=== PATIENT | female | born 1980 | race Caucasian/White ===

== ENCOUNTER → 2019-07-24 13:00 | Outpatient (BNVA) | payer OTHER, SELFPAY | PROVIDERS: Family Provider Pediatrics; PCP Family Medicine; Visit Provider Obstetrics & Gynecology | DX: N64.59 Other signs and symptoms in breast (principal); N64.4 Mastodynia | CPT/HCPCS: 84402; 84443 ==

== ENCOUNTER 2019-08-03 08:39 | Outpatient (CLI) | payer OTHER, SELFPAY ==
--- NOTE | 2019-08-03 08:45 | US_ITS ---
WS: [id number] ULTRASOUND BILATERAL BREASTs, complete. HISTORY: breast pain, bilateral mammoplasty. History of bilateral maternal breast cancer in her 40s. COMPARISON: 10/01/2015 TECHNIQUE: 2-D and Doppler. Ultrasound is performed of the 4 quadrants of each breast. No masses or distortion or soft tissue thi ckening. No increased vascularity. US/US breast BI complete [id number] IMPRESSION: BI-RADS: 1-Negative FOLLOW-UP: See Report As the patient is symptomatic and with a significant family history of breast c ancer mammogram should be obtained. Complete breast ultrasound is not adequate to evaluate all areas of the breast if symptomatic and positive family history.
== END 2019-08-03 08:40 | disposition home or self-care (01) ==
LOC: RAD 08:43
PROVIDERS: Visit Provider Obstetrics & Gynecology
DX: N64.4 Mastodynia (principal); Z80.3 Family history of malignant neoplasm of breast
CPT/HCPCS: 76641

== ENCOUNTER → 2019-08-21 10:42 | Outpatient (BNVA) | payer OTHER, SELFPAY | PROVIDERS: Visit Provider Obstetrics & Gynecology | DX: Z01.419 Encounter for gynecological examination (general) (routine) without abnormal findings | CPT/HCPCS: 88175 ==

== ENCOUNTER → 2019-12-10 09:34 | Outpatient (BNVA) | payer OTHER, SELFPAY | PROVIDERS: PCP Family Medicine; Visit Provider Family Medicine | DX: Z13.6 Encounter for screening for cardiovascular disorders (principal); J30.2 Other seasonal allergic rhinitis; Z23 Encounter for immunization | CPT/HCPCS: 80053; 80061; 83721; 85025 ==

== ENCOUNTER → 2019-12-11 15:48 | Outpatient (BNVA) | payer OTHER, SELFPAY | PROVIDERS: PCP Family Medicine; Visit Provider Family Medicine | DX: Z13.6 Encounter for screening for cardiovascular disorders (principal); J30.2 Other seasonal allergic rhinitis; Z23 Encounter for immunization; R79.9 Abnormal finding of blood chemistry, unspecified | CPT/HCPCS: 82728; 83550 ==

== ENCOUNTER → 2020-03-03 09:30 | Outpatient (BNVA) | payer OTHER, SELFPAY | PROVIDERS: PCP Family Medicine; Visit Provider Family Medicine | DX: E78.2 Mixed hyperlipidemia (principal) | CPT/HCPCS: 80061 ==

== ENCOUNTER → 2020-04-18 09:32 | Outpatient (BNVA) | payer OTHER, SELFPAY | PROVIDERS: PCP Family Medicine; Visit Provider Family Medicine | DX: M79.10 Myalgia, unspecified site (principal); Z86.19 Personal history of other infectious and parasitic diseases | CPT/HCPCS: 80053; 85025; 85651; 86038; 86140; 86431 ==

== ENCOUNTER 2020-08-16 21:09 | Emergency (ER) | payer OTHER, SELFPAY ==
[2020-08-16 21:25] VITALS: BP 142/82; PULSE 77; RESP 16; O2SAT 95; BMI 28.3
--- NOTE | 2020-08-16 21:40 | ED_ITS ---
HPI - General Adult General: Chief complaint: General Medical Stated complaint: tick bite Time Seen by Provider: 08/16/20 21:29 History of Present Illness: HPI narrative: Patient comes in for a tick bite to the right lower leg that has redness and streaking. Patient appears well. Patient reports some pain and tenderness to the area. Patient is hearing impaired, with hypertriglyceridemia, and depression. Patient reports tick bite for 3 days. Review of Systems General: Reports: 10 or more systems reviewed and unremarkable except in HPI and below Skin/Breast: Reports: erythema PFSH ED PFSH: Medical History (Updated 08/16/20 @ 21:39 by MIN Moore) Hearing impaired History of 2019 novel coronavirus disease (COVID-19) IBS (irritable bowel syndrome) Surgical History Corneal transplant status H/O umbilical hernia repair Surgery performed by Dr. Weiss 1 09/28/2017 for umbilical hernia. Patient does not know if mesh was used. Hx of lumpectomy Lumpectomy performed by Dr. Weiss from the right axilla S/P abdominoplasty in 2010 S/P adenoidectomy Performed as a child S/P appendectomy Laparoscopic appendectomy performed on 08/09/[address] Weiss. S/P bilateral breast reduction Performed in [facility] in 2013 S/P cholecystectomy Laparoscopic cholecystectomy performed on 05/26/[address] [place] [facility] S/P dilation and curettage States that she has had 2 D&C about 2 weeks for heavy bleeding after both her deliveries S/P hemorrhoidectomy First on 08/29/2013 and a second surgery performed for recurrence on 07/13/2017---both procedures performed by Dr. Weiss at [facility]. S/P LEEP Performed in 2012 for an abnormal Pap smear by Dr. Slaughter. She states all Pap smears have been negative since then. Status post corneal transplant 05/2017 Status post surgery Anterior colporrhaphy with cystoscopy: Performed by Dr. Slaughter at the surgery center on 03/27/2012 for cystocele with stress urinary incontinence. Family History Mother Breast cancer Diagnosed in her late 40s Hypertension Hyperlipidemia Grandmother Lung cancer maternal Grandfather Primary cancer of bone marrow maternal Denies family history of Colon cancer Ovarian cancer Diabetes Heart disease Uterine cancer Thyroid condition Stroke Social History Smoking and tobacco status: never smoked Alcohol intake: unknown Additional social history: - Tobacco Use: Denies past or current use Alcohol Use: Drinks socially, once a year on average Drug Use: Denies past or current use Work/Study status: Unemployed, not looking for work. Physical Exam Const: COMMON NORMALS: no acute distress and patient oriented x3 GENERAL APPEARANCE: cooperative HENMT: COMMON NORMALS: normocephalic and Normal external nose present HEAD & SCALP: normal to inspection and normocephalic NOSE: Normal external nose present MOUTH: Normal oral and palatal mucosa present Eye: GENERAL EYE: appearance normal, both eyes and all related structures Neck/C-Spine: COMMON NORMALS: full ROM Chest: COMMONS NORMALS: normal inspection of the chest Resp: COMMON NORMALS: normal respiratory effort EFFORT & INSPECTION: Yes able to speak in complete sentences Cardio: COMMON NORMALS: regular rate and regular rhythm RATE: regular rate RHYTHM: regular rhythm GI: COMMON NORMALS: non-tender Back/Pelvis: COMMON NORMALS: thoracic and lumbar spine normal to inspection Extremity: NARRATIVE EXTREMITY EXAM: Insect bite to the inner right lower leg with a area of redness approximately 2 cm with streaking approximately 4 cm. Neuro: COMMON NORMALS: patient oriented x3 and moves all extremities Psych: COMMON NORMALS: mental status grossly normal and cooperative Skin: COMMON NORMALS: no rashes or lesions noted GENERAL SKIN EXAM: no rashes or lesions noted Course Vital Signs: Vital signs: Vital Signs Pulse Rate 77 08/16/20 21:25 Respiratory Rate 16 08/16/20 21:25 Blood Pressure 142/82 08/16/20 21:25 Pulse Oximetry 95 08/16/20 21:25 MDM - General Adult MDM Narrative: Medical decision making narrative: 40-year-old female comes in today with redness and tenderness to the right lower leg. Patient has a area of redness with a central punctate lesion with some streaking from the area of redness. Differential diagnosis includes cellulitis, infected insect bite, tick borne illness. We will cover for most tickborne illnesses with doxycycline. Encourage plenty of fluids and medications as directed. Patient reported understanding agreed to plan. Discharge Plan Discharge Patient Disposition: Home Clinical Impression: Infected insect bite of right leg Qualifiers: Encounter type: initial encounter Qualified Code(s): S80.861A - Insect bite (nonvenomous), right lower leg, initial encounter Condition: Stable Prescriptions: New doxycycline monohydrate 100 mg capsule 100 mg PO BID 10 Days Qty: 20 RF: 0 No Action multivitamin Capsule 1 cap PO DAILY RF: 0 valacyclovir 500 mg tablet 500 mg PO DAILY RF: 0 MegaRed [place]-3 Krill Oil [phone] mg capsule PO RF: 0 prednisolone acetate 1 % drops,suspension 1 drp ophthalmic (eye) BID RF: 0 ketoconazole 2 % foam 1 applic TOPICAL ONCE RF: 0 levocetirizine 5 mg tablet 5 mg PO DAILY Qty: 90 RF: 1 buspirone 5 mg tablet 5 mg PO TID PRN (Reason: anxiety) Qty: 90 RF: 0 fenofibrate nanocrystallized 145 mg tablet 145 mg PO DAILY Qty: 90 RF: 1 paroxetine HCl [Paxil] 10 mg tablet 10 mg PO DAILY RF: 0 clobetasol 0.05 % solution 1 applic topical DAILY Qty: 25 RF: 3 Discharge Orders: Discharge ED (Routine); Ordered 08/16/20 Ordered By: Kevin Boyer Referrals: Ashleigh Lorenzo DO [Primary Care Provider] - Discharge Diet: Usual diet Discharge Activity: Increase activity as tolerated Patient Instructions: Tick Bite (ED), Opioid Safety Activity Restrictions/Additional Instructions: I have treated you for an infected tick bite. We are covering it with an antibiotic that will cover most tickborne illnesses. Use acetaminophen or ibuprofen for pain. Drink plenty of water with medication. Follow-up with primary care for further instructions. Coding Level of Care Code ED Recoater for Martin Mcclendon
[2020-08-16] MEDS: doxycycline 100 mg Tablet PO (21:56)
[2020-08-16 21:57] VITALS: BP 141/69; PULSE 83; RESP 17; O2SAT 97
== END 2020-08-16 22:05 | disposition home or self-care (01) ==
PROVIDERS: Emergency Provider Nurse Practitioner Family; PCP Family Medicine
DX: S80.861A Insect bite (nonvenomous), right lower leg, initial encounter (principal); X58.XXXA Exposure to other specified factors, initial encounter; E78.1 Pure hyperglyceridemia; H91.93 Unspecified hearing loss, bilateral
CPT/HCPCS: 99282

== ENCOUNTER → 2020-10-21 11:28 | Outpatient (BNVA) | payer OTHER, SELFPAY | PROVIDERS: PCP Family Medicine; Visit Provider Family Medicine | DX: E78.1 Pure hyperglyceridemia (principal) | CPT/HCPCS: 80053; 80061 ==

== ENCOUNTER → 2020-11-04 09:26 | Outpatient (BNVA) | payer OTHER, SELFPAY | PROVIDERS: PCP Family Medicine; Visit Provider Nurse Practitioner Psychiatric/Mental Health | DX: F33.1 Major depressive disorder, recurrent, moderate (principal); F43.12 Post-traumatic stress disorder, chronic; Z79.899 Other long term (current) drug therapy | CPT/HCPCS: 99204 ==

== ENCOUNTER 2020-11-19 11:46 | Outpatient (CLI) | payer OTHER, SELFPAY ==
--- NOTE | 2020-11-19 12:00 | MM_ITS ---
WS: [id number] BILATERAL DIGITAL SCREENING MAMMOGRAPHY WITH CAD CLINICAL INFORMATION: Z80.3 - Family history of malignant neoplasm of breast HISTORY: Screening mammogram. No current complaints. COMPARISON: and 2012 TECHNIQUE: Bilateral CC and MLO views. FINDINGS: History of breast reduction Scattered fibroglandular densities bilaterally. 11 mm asymmetric density inner right breast best seen on the cc view more prominent compared to previous. Recommend spot compression views and ultrasound. Left breast is unremarkable. A few tiny punctate calcifications MM/[place] [id number] IMPRESSION: BI-RADS: 0-Incomplete: Need additional imaging evaluation FOLLOW UP: Need Additional Imaging RIGHT BREAST DIAGNOSTIC MAMMOGRAPHY AND ULTRASOUND RECOMMENDED FOR FURTHER EVAL UATION.
== END 2020-11-19 11:47 | disposition home or self-care (01) ==
LOC: RADSHAW 11:54
PROVIDERS: PCP Family Medicine; Visit Provider Obstetrics & Gynecology
DX: Z12.31 Encounter for screening mammogram for malignant neoplasm of breast (principal); Z80.3 Family history of malignant neoplasm of breast
CPT/HCPCS: 77067

== ENCOUNTER 2020-11-26 14:16 | Outpatient (CLI) | payer OTHER, SELFPAY ==
--- NOTE | 2020-11-26 14:30 | MM_ITS ---
WS: [id number] RIGHT DIGITAL MAMMOGRAPHY WITH CAD CLINICAL INFORMATION: R92.8 - Other abnormal and inconclusive findings on diagn... COMPARISON: TECHNIQUE: 3 views of the right breast were obtained. FINDINGS: History of breast reduction Scattered fibroglandular densities of the right breast. 11 mm asymmetric density inner right breast p artially compresses out but persistent on spot compression views. Ultrasound is pending. Stable punct ate calcifications. ULTRASOUND BREAST RIGHT TECHNIQUE: Ultrasound right breast focused area of concern. FINDINGS: Ultrasound right breast inner quadrant 12:00-600 position. Normal underlying breast parenchyma. No cy stic or solid lesions. No pathologic findings. Mammographic findings likely due to overlapping breast tissue. Recommend return to annual screening mammography. MM/[place] [id number] IMPRESSION: BI-RADS: 2-Benign FOLLOW UP: 1 Year Follow-up Recommend return to annual screening mammography.
--- NOTE | 2020-11-26 15:00 | US_ITS ---
WS: [id number] RIGHT DIGITAL MAMMOGRAPHY WITH CAD CLINICAL INFORMATION: R92.8 - Other abnormal and inconclusive findings on diagn... COMPARISON: TECHNIQUE: 3 views of the right breast were obtained. FINDINGS: History of breast reduction Scattered fibroglandular densities of the right breast. 11 mm asymmetric density inner right breast p artially compresses out but persistent on spot compression views. Ultrasound is pending. Stable punct ate calcifications. ULTRASOUND BREAST RIGHT TECHNIQUE: Ultrasound right breast focused area of concern. FINDINGS: Ultrasound right breast inner quadrant 12:00-600 position. Normal underlying breast parenchyma. No cy stic or solid lesions. No pathologic findings. Mammographic findings likely due to overlapping breast tissue. Recommend return to annual screening mammography. US/US breast RT limited* [id number] IMPRESSION: BI-RADS: 2-Benign FOLLOW UP: 1 Year Follow-up Recommend return to annual screening mammography.
== END 2020-11-26 14:17 | disposition home or self-care (01) ==
LOC: RADSHAW 14:19
PROVIDERS: PCP Family Medicine; Visit Provider Obstetrics & Gynecology
DX: R92.8 Other abnormal and inconclusive findings on diagnostic imaging of breast (principal)
CPT/HCPCS: 76642; 77065

== ENCOUNTER → 2020-12-05 10:54 | Outpatient (BNVA) | payer OTHER, SELFPAY | PROVIDERS: PCP Family Medicine; Visit Provider Social Worker | DX: F33.1 Major depressive disorder, recurrent, moderate (principal); F33.2 Major depressive disorder, recurrent severe without psychotic features; F41.1 Generalized anxiety disorder; F43.12 Post-traumatic stress disorder, chronic | CPT/HCPCS: 90834 ==

== ENCOUNTER → 2020-12-08 10:50 | Outpatient (BNVA) | payer OTHER, SELFPAY | PROVIDERS: PCP Family Medicine; Visit Provider Nurse Practitioner Psychiatric/Mental Health | DX: F33.1 Major depressive disorder, recurrent, moderate (principal); F43.12 Post-traumatic stress disorder, chronic | CPT/HCPCS: 99214 ==

== ENCOUNTER → 2020-12-17 08:40 | Outpatient (BNVA) | payer OTHER, SELFPAY | PROVIDERS: PCP Family Medicine; Visit Provider Social Worker | DX: F33.1 Major depressive disorder, recurrent, moderate (principal) | CPT/HCPCS: 90834 ==

== ENCOUNTER → 2020-12-30 14:37 | Outpatient (BNVA) | payer OTHER, SELFPAY | PROVIDERS: PCP Family Medicine; Visit Provider Social Worker | DX: F33.1 Major depressive disorder, recurrent, moderate (principal); F43.12 Post-traumatic stress disorder, chronic | CPT/HCPCS: 90834 ==

== ENCOUNTER → 2021-01-15 14:47 | Outpatient (BNVA) | payer OTHER, SELFPAY | PROVIDERS: PCP Family Medicine; Visit Provider Social Worker | DX: F33.1 Major depressive disorder, recurrent, moderate (principal); F43.12 Post-traumatic stress disorder, chronic | CPT/HCPCS: 90834 ==

== ENCOUNTER → 2021-01-19 15:10 | Outpatient (BNVA) | payer OTHER, SELFPAY | PROVIDERS: PCP Family Medicine; Visit Provider Nurse Practitioner Psychiatric/Mental Health | DX: F33.1 Major depressive disorder, recurrent, moderate (principal); F43.12 Post-traumatic stress disorder, chronic | CPT/HCPCS: 99214 ==

== ENCOUNTER → 2021-01-29 14:52 | Outpatient (BNVA) | payer OTHER, SELFPAY | PROVIDERS: PCP Family Medicine; Visit Provider Social Worker | DX: F33.1 Major depressive disorder, recurrent, moderate (principal); F43.12 Post-traumatic stress disorder, chronic | CPT/HCPCS: 90834 ==

== ENCOUNTER → 2021-02-10 18:48 | Outpatient (BNVA) | payer OTHER, SELFPAY | PROVIDERS: PCP Family Medicine; Visit Provider Registered Nurse Neonatal Intensive Care | DX: M25.511 Pain in right shoulder (principal); M75.31 Calcific tendinitis of right shoulder | CPT/HCPCS: 73030 ==

== ENCOUNTER → 2021-02-24 15:47 | Outpatient (BNVA) | payer OTHER, SELFPAY | PROVIDERS: PCP Family Medicine; Visit Provider Nurse Practitioner Psychiatric/Mental Health | DX: F33.1 Major depressive disorder, recurrent, moderate (principal); F43.12 Post-traumatic stress disorder, chronic | CPT/HCPCS: 99214 ==

== ENCOUNTER → 2021-05-04 09:41 | Outpatient (BNVA) | payer OTHER, SELFPAY | PROVIDERS: PCP Family Medicine; Visit Provider Family Medicine | DX: E78.5 Hyperlipidemia, unspecified (principal); R89.9 Unspecified abnormal finding in specimens from other organs, systems and tissues | CPT/HCPCS: 80053; 80061 ==

== ENCOUNTER 2021-06-11 20:07 | Emergency (ER) | payer OTHER, SELFPAY ==
[2021-06-11 20:16] VITALS: BP 151/91; PULSE 96; RESP 18; O2SAT 98; BMI 28.3
--- NOTE | 2021-06-11 20:31 | ED_ITS ---
HPI - Arrhythmia/Palpitations General: Chief Complaint: Arrhythmia/Palpitations Stated Complaint: eneven heart rate Time Seen by Provider: 06/11/21 20:30 History of Present Illness: Ms. Marie is a 40-year-old lady with significant past medical history of psychiatric concerns and hypertriglyceridemia who presents to the emergency department due to chest discomfort and racing heart. She endorses symptom onset was subacute approximately 2 months ago. She denies known specific provoking factor however since that time has had intermittent episodes of racing heart. This does not occur temporally or with any specific relationship that she is found. Initially she saw her primary psychiatrist who started propranolol with concern that this was related to anxiety. When she takes her medications her symptoms do improve however they have returned to become more frequent. She endorses high blood pressure associated with these episodes, lightheadedness, and chest discomfort. Chest discomfort is pressure in the middle of her chest without other typical cardiac features. She denies infectious symptoms. Overall course has been worsening in frequency. Intensity is moderate to severe when present. An episode today brought her to the ED which she felt was worse. No other specific changes in health, exacerbating, or alleviating factors identified. Onset (ago): month(s) Duration: intermittent Severity: moderate Review of Systems General: Reports: 10 or more systems reviewed and unremarkable except in HPI and below PFSH ED PFSH: Medical History Chronic post-traumatic stress disorder Depression with anxiety Currently on medication managed by PMD. Generalized anxiety disorder Hearing impaired Major depressive disorder, recurrent episode, moderate with anxious distress No pertinent past medical history Denies diabetes, asthma, hypertension, seizures, DVT/PE PCP: Dr. Lorenzo Psychiatric [facility] Surgical History H/O umbilical hernia repair 09/28/2017----Surgery performed by Dr. Weiss . Patient does not know if mesh was used. Hx of lumpectomy Lumpectomy performed by Dr. Weiss from the right axilla S/P abdominoplasty in 2010 S/P adenoidectomy Performed as a child S/P appendectomy Laparoscopic appendectomy performed on 08/09/[address] Weiss. S/P bilateral breast reduction Performed in [place] [facility] in 2013 S/P cholecystectomy Laparoscopic cholecystectomy performed on 05/26/[address] Weiss [place] [facility]. S/P dilation and curettage States that she has had 2 D&C about 2 weeks for heavy bleeding after both her deliveries S/P hemorrhoidectomy First on 08/29/2013 and a second surgery performed for recurrence on 07/13/2017---both procedures performed by Dr. Weiss at [facility]. S/P LEEP Performed in 2012 for an abnormal Pap smear by Dr. Slaughter. She states all Pap smears have been negative since then. Status post corneal transplant 05/2017 Status post surgery Anterior colporrhaphy with cystoscopy: Performed by Dr. Slaughter at the surgery center on 03/27/2012 for cystocele with stress urinary incontinence. Family History Mother Breast cancer Diagnosed in her late 40s Hypertension Hyperlipidemia Grandmother Lung cancer maternal Breast cancer maternal, diagnosed in her late 40s Hypertension maternal Grandfather Primary cancer of bone marrow maternal Stroke maternal Denies family history of Colon cancer Ovarian cancer Diabetes Heart disease Uterine cancer Thyroid condition Social History Smoking and tobacco status: never smoked Alcohol intake: unknown Physical Exam Const: COMMON NORMALS: alert GENERAL APPEARANCE: cooperative and well developed HENMT: COMMON NORMALS: normocephalic and atraumatic HEAD & SCALP: normo cephalic and atraumatic Eye: COMMON NORMALS: conjunctivae normal CONJUNCTIVA: Yes conjunctivae normal SCLERA: sclerae normal Neck/C-Spine: COMMON NORMALS: supple GENERAL: Yes trachea midline Resp: COMMON NORMALS: clear to auscultation bilaterally EFFORT & INSPECTION: Yes able to speak in complete sentences AUSCULTATION: clear to auscultation bilaterally Cardio: COMMON NORMALS: regular rhythm RATE: tachycardic RHYTHM: regular rhythm GI: COMMON NORMALS: Soft to palpation PALPATION: Yes Soft to palpation and No Tenderness to palpation present (GI) Extremity: GENERAL: Yes normal exam except as noted and No edema Neuro: COMMON NORMALS: moves all extremities SENSORIUM/ORIENTATION: Yes alert and No Orientation impaired OTHER: hearing impaired Psych: COMMON NORMALS: mental status grossly normal and Normal thought process present THOUGHT PROCESS: Normal thought process present Course ED course: - Patient was seen and evaluated by me at bedside - Patient placed on cardiac monitors, IV access obtained - Initial evaluation notable for exam as above. Patient is tachycardic at rest. - Labs and xrays personally interpreted by me. EKG performed at 2025 and 2240 interpreted by me. Sinus rhythm. Nonspecific ST segment abnormalities. No STEMI. -Fluids ordered. - Labs notable for no leukocytosis, normal hemoglobin. Metabolic panel without acute derangement to explain symptoms. Delta troponin negative. Given tachycardia at rest including heart rate in the 120s and based on Wells score a D-dimer was ordered which was elevated. - Imaging notable for no lobar consolidation or pneumothorax. Single subsegmental right lower lobe pulmonary embolism without evidence of right heart strain. - Upon serial reexamination after treatment the patient was similar - Based on patient history, evaluation, and testing as interpreted the most likely cause of the patient's condition is unclear. I did discuss the uncertainty of etiology of patient symptoms with her and I discussed prior to ordering a D-dimer. It is possible, especially in the context of pectus excavatum, that the patient is more sensitive to even small pulmonary embolism. Regardless, given this finding on CTA the treatment was discussed with patient, including risks and benefits as well as specific precautions, patient will be initiated on Eliquis. First dose ordered here given that pharmacies are closed. Patient is Low risk to very low risk by Jessica and PESI, not requiring oxygen, patient not hypotensive. - The results of ED evaluation were discussed with the patient including p rescriptions and/or symptomatic cares (if applicable) including appropriate and responsible use, followup plan, and return precautions. The patient verbalized understanding and felt safe for discharge. - Patient discharged in satisfactory condition. Note: Click bubbles or prepopulated hoang in note writing are used for assistance with data collection and billing and are inherently more limited than narrative and other text portions of this note. Please use narrative for additional clinical history and defer to narrative/free test for any case of contradictory information. If information appears in only free text or click bubble it should be considered present or absent as reported. Please contact note manual writer for clarifications of clinical information or contradictory information. MDM is a brief summary, contradictory or erroneous seeming information should be clarified and full note should be reviewed. Vital Signs: Vital signs: Vital Signs Pulse Rate 85 06/11/21 23:44 Respiratory Rate 18 06/11/21 23:44 Blood Pressure 136/70 06/11/21 23:44 Pulse Oximetry 98 06/11/21 23:44 MDM - Arrhythmia/Palpitations Medical Decision Making 40 yo old lady presenting with progressively worsening episodes of racing heart and elevated blood pressure that occurs at random times. Patient is noted to be tachycardic at rest without clear etiology identified on ED evaluation initially. D-dimer elevated and CTA shows small single subsegmental pulmonary and was not. Patient is low risk to very low risk by Jessica and PESI, not requiring oxygen, patient not hypotensive. Will initiate on Eliquis with close PCP follow-up and strict return precautions. Patient comfortable with, and is satisfactory for, discharge. Medical Records I reviewed the patient's medical records. Lab Data I reviewed the patient's lab results. : 06/11/21 20:37 06/11/21 20:37 Radiology Impressions Chest X-Ray 06/11/21 20:51 IMPRESSION: No acute cardiopulmonary abnormality. Chest CTA 06/11/21 22:02 IMPRESSION: Tiny subsegmental right lower lobe pulmonary embolus. No evidence of right heart strain. Rosas Hartman was informed of exam results at 06/11/2021 10:41 PM CDT. Laboratory Results WBC 9.9 10^3/uL (4.0-10.0) 06/11/21 20:37 RBC 4.75 10^6/uL (4.1-5.3) 06/11/21 20:37 Hgb 13.1 g/dL (11.5-15.3) 06/11/21 20:37 Hct 40.9 % (37.0-47.0) 06/11/21 20:37 MCV 86.1 fl (81-99) 06/11/21 20:37 MCH 27.6 pg (28.0-34.0) L 06/11/21 20:37 MCHC 32.0 g/dL (30.0-36.0) 06/11/21 20:37 RDW 12.8 % (12.1-15.1) 06/11/21 20:37 Plt Count 538 10^3/cmm (130-400) H 06/11/21 20:37 MPV 9.6 fL (7.4-10.4) 06/11/21 20:37 Neut % (Auto) 58.3 % 06/11/21 20:37 Lymph % (Auto) 32.4 % 06/11/21 20:37 [place] % (Auto) 6.7 % 06/11/21 20:37 Eos % (Auto) 1.7 % 06/11/21 20:37 Baso % (Auto) 0.3 % 06/11/21 20:37 Neut # (Auto) 5.76 10^3/uL (1.8-7.7) 06/11/21 20:37 Lymph # (Auto) 3.2 10^3/uL (0.8-4.8) 06/11/21 20:37 [place] # (Auto) 0.7 10^3/uL (0.2-0.9) 06/11/21 20:37 Eos # (Auto) 0.2 10^3/uL (0.0-0.8) 06/11/21 20:37 Baso # (Auto) 0.0 10^3/uL (0.0-0.1) 06/11/21 20:37 Nucleated RBC % (auto) 0 % 06/11/21 20:37 Nucleated RBCs # 0.0 /100WBC 06/11/21 20:37 D-Dimer 0.82 ug/mIFEU (0-0.59) H 06/11/21 21:36 Sodium 137 mmol/L (136-145) 06/11/21 20:37 Potassium 4.1 mmol/L (3.5-5.1) 06/11/21 20:37 Chloride 99 mmol/L (98-107) 06/11/21 20:37 Carbon Dioxide 23 mmol/L (22-29) 06/11/21 20:37 Anion Gap 19.1 (5-19) H 06/11/21 20:37 BUN 11 mg/dL (6-20) 06/11/21 20:37 Creatinine 0.6 mg/dL (0.5-0.9) 06/11/21 20:37 GFR Calculation 111.9 mL/min (90-130) 06/11/21 20:37 Glucose 92 mg/dL (65-115) 06/11/21 20:37 Calculated Osmolality 283 mOsm/kg (285-295) L 06/11/21 20:37 Calcium 10.1 mg/dL (8.5-10.5) 06/11/21 20:37 Total Bilirubin 0.2 mg/dL (0.15-1.2) 06/11/21 20:37 AST 21 U/L (0-32) 06/11/21 20:37 ALT 18 U/L (0-33) 06/11/21 20:37 Alkaline Phosphatase 59 IU/L (35-105) 06/11/21 20:37 Troponin T Baseline 6 ng/L (0-10) 06/11/21 20:37 Troponin T 120 Minute 6.00 ng/L (0-10) 06/11/21 22:30 Delta Troponin T 0 ABS# (0-10) 06/11/21 22:30 NT-Pro-B Natriuret Pep 5 pg/mL (0-125) 06/11/21 22:30 Total Protein 7.7 g/dL (6.6-8.7) 06/11/21 20:37 Albumin 5.2 g/dL (3.5-5.2) 06/11/21 20:37 Globulin 2.5 g/dL (1.3-4.6) 06/11/21 20:37 Lipase 48 U/L (13-60) 06/11/21 20:37 TSH 0.95 uIU/mL (0.27-4.20) 06/11/21 20:37 HCG, Qual Negative (Negative) 06/11/21 21:06 Urine Color Yellow (Yellow) 06/11/21 21:06 Urine Appearance Clear (CLEAR) 06/11/21 21:06 Urine pH 5 (5-7) 06/11/21 21:06 Ur Specific [place] 1.020 (1.005-1.030) 06/11/21 21:06 Urine Protein Neg (Negative) 06/11/21 21:06 Urine Glucose (UA) Norm (Normal) 06/11/21 21:06 Urine Ketones Negative (Negative) 06/11/21 21:06 Urine Blood Neg (Negative) 06/11/21 21:06 Urine Nitrate Negative (Negative) 06/11/21 21:06 Urine Bilirubin Neg (Negative) 06/11/21 21:06 Urine Urobilinogen Norm mg/dL (Negative) 06/11/21 21:06 Ur Leukocyte Esterase Negative (Negative) 06/11/21 21:06 Discharge Plan Discharge Patient Disposition: Home Clinical Impression: Pulmonary embolism, Palpitations, Chest pain, Pectus excavatum, Intermittent lightheadedness Condition: Stable Prescriptions: New Eliquis DVT-PE Treat 30D Start 5 mg (74 tabs) tablets,dose pack See Rx Instructions .ROUTE .COMPLEX Qty: 74 0RF Rx Instructions: orally per package directions No Action multivitamin Capsule 1 cap PO DAILY 0RF MegaRed [place]-3 Krill Oil [phone] mg capsule 1 cap PO DAILY 0RF prednisolone acetate 1 % drops,suspension 1 drp ophthalmic (eye) DAILY 0RF Rx Instructions: 5 days weekly levocetirizine 5 mg tablet 5 mg PO DAILY Qty: 90 1RF clobetasol 0.05 % shampoo 1 applic topical .2 times weekly Qty: 118 3RF Rx Instructions: Lather onto scalp, let sit 5 minutes, then rinse bupropion HCl [Wellbutrin SR] 200 mg tablet sustained-release 12 hr 200 mg PO .morning Qty: 30 3RF Rx Instructions: Take one tablet every morning metoprolol tartrate 25 mg tablet 12.5 mg PO BID Qty: 60 0RF Eliquis 5 mg tablet 5 mg PO BID 30 Days Qty: 60 4RF clobetasol 0.05 % solution 1 applic topical DAILY Qty: 25 3RF Rx Instructions: Apply a few drops to affected area on the scalp prn fenofibrate nanocrystallized 145 mg tablet 145 mg PO DAILY Qty: 90 1RF Discharge Orders: Discharge ED (Routine); Ordered 06/11/21 Ordered By: Rosas aHrtman Referrals: Ashleigh Lorenzo DO [Primary Care Provider] - Discharge Diet: Usual diet Discharge Activity: Resume usual activity Patient Instructions: Apixaban (By mouth) (Eliquis), Pulmonary Embolism (ED) Activity Restrictions/Additional Instructions: Thank you for visiting the emergency department. You were seen and evaluated for abnormal heart rate, blood pressure fluctuations, chest discomfort, and other associated symptoms. The exact cause of your symptoms is unclear however you were found to have a subsegmental pulmonary embolism (a blood clot in a smaller artery in your lungs). This will be treated with Eliquis. As discussed this has an increased risk of bleeding. Watch for signs of bleeding. You must return to the emergency department for bleeding that does not stop with direct pressure, any trauma including minor head trauma, worsening lightheadedness dizziness chest pain or shortness of breath. Given the described symptoms and the location of this blood clot I am not sure that this fully explains all of your symptoms however there is no other significant abnormality found at this time and no indication for hospitalization. Please follow-up with your primary care provider. Please return to the emergency department for anything else that you are concerned about and feel needs emergency department evaluation. Coding Level of Care Code ED Wheel Roller for Martin Mcclendon
[2021-06-11 20:46] VITALS: BP 164/72; PULSE 90; RESP 20
[2021-06-11 20:47] VITALS: BP 159/83; PULSE 85
[2021-06-11 20:48] VITALS: BP 158/99; PULSE 107
--- NOTE | 2021-06-11 20:51 | ECG_ITS ---
[facility] Test Date: 2021-06-11 Pat Name: Nery Marie Department: Room: Gender: Female Supervisor Reclamation: : 1980 Requested By: Rosas Hartman Order Number: [id number] Zulma MD: Chelita Mauro M.D. Measurements Intervals [place] Rate: 89 P: 7 MA: 120 QRS: 33 QRSD: 97 T: 31 QT: 343 QTc: 419 Interpretive Statements SINUS RHYTHM No previous ECG available for comparison Electronically Signed On 06-12-2021 10:58:44 CDT by Chelita Mauro M.D. [id number]
--- NOTE | 2021-06-11 20:51 | XRR_ITS ---
PROCEDURE INFORMATION: Exam: XR Chest Exam date and time: 06/11/2021 8:59 PM Age: 40 years old Clinical indication: Chest pressure; Patient HX: C/O chest pain. TECHNIQUE: Imaging protocol: XR of the chest. Views: 1 view. COMPARISON: CR XR shoulder RT min 2V* [id number] 02/10/2021 6:53 PM FINDINGS: Lungs: The lungs are clear. Pleural spaces: Unremarkable. No pleural effusion. No pneumothorax. Heart/Mediastinum: Unremarkable. No cardiomegaly. Bones/joints: Unremarkable. XR/XR chest 1V portable [id number] IMPRESSION: No acute cardiopulmonary abnormality.
[2021-06-11 20:56] LABS: Basophils % 0.3 %; Eosinophils # 0.2 10^3/uL (0.0-0.8); Eosinophils % 1.7 %; Hematocrit 40.9 % (37.0-47.0); Hemoglobin 13.1 g/dL (11.5-15.3); Lymphocytes # 3.2 10^3/uL (0.8-4.8); Lymphocytes % 32.4 %; Mean Corpuscular Hemoglobin 27.6 pg (28.0-34.0); Mean Corpuscular Volume 86.1 fl (81-99); Mean Platelet Volume 9.6 fL (7.4-10.4); Monocytes # 0.7 10^3/uL (0.2-0.9); Monocytes % 6.7 %; Neutrophils # 5.76 10^3/uL (1.8-7.7); Neutrophils % 58.3 %; Nucleated Red Blood Cells % 0 %; Platelet Count 538 10^3/cmm (130-400); Red Blood Count 4.75 10^6/uL (4.1-5.3); Red Cell Distribution Width 12.8 % (12.1-15.1); White Blood Count 9.9 10^3/uL (4.0-10.0)
[2021-06-11] MEDS: sodium chloride 0.9% 1,000 ML 999 ML IV (21:03)
[2021-06-11 21:10] LABS: Troponin(5th) Baseline 6 ng/L (0-10)
[2021-06-11 21:15] LABS: Add Urine Microscopic? NO; Charge for UA Resulting for Rev
[2021-06-11 21:16] LABS: Alanine Aminotransferase 18 U/L (0-33); Albumin Level 5.2 g/dL (3.5-5.2); Alkaline Phosphatase 59 IU/L (35-105); Aspartate Amino Transferase 21 U/L (0-32); Blood Urea Nitrogen 11 mg/dL (6-20); Calcium 10.1 mg/dL (8.5-10.5); Carbon Dioxide 23 mmol/L (22-29); Chloride 99 mmol/L (98-107); Creatinine Clr Calc Pharmacy 121.3599; Globulin 2.5 g/dL (1.3-4.6); Glomerular Filtration Rate 111.9 mL/min (90-130); Glucose 92 mg/dL (65-115); Lipase 48 U/L (13-60); Osmolality Calculated 283 mOsm/kg (285-295); Sodium 137 mmol/L (136-145); Thyroid Stimulating Hormone 0.95 uIU/mL (0.27-4.20); Total Bilirubin 0.2 mg/dL (0.15-1.2); Total Protein 7.7 g/dL (6.6-8.7)
[2021-06-11 21:17] LABS: Anion Gap 19.1 (5-19); Potassium 4.1 mmol/L (3.5-5.1)
[2021-06-11 21:18] LABS: Bilirubin Urine Neg (Negative); Blood Urine Neg (Negative); Glucose Urine UA Norm (Normal); HCG Qualitative Urine. Negative (Negative); Ketones Urine Negative (Negative); Leukocyte Esterase Urine Negative (Negative); Nitrate Urine Negative (Negative); Protein Urine Neg (Negative); Urine Appearance Clear (CLEAR); Urine Color Yellow (Yellow); Urobilinogen Urine Norm (Negative); pH Urine 5 (5-7)
[2021-06-11 21:58] LABS: D Dimer 0.82 ug/mIFEU (0-0.59)
--- NOTE | 2021-06-11 22:02 | CTR_ITS ---
PROCEDURE INFORMATION: Exam: CTA Chest With Contrast Exam date and time: 06/11/2021 10:19 PM Age: 40 years old Clinical indication: Abnormal findings; Abnormal diagnostic tests; Elevated d-dimer; Prior surgery; Surgery type: Gb. Breast reduction. ; Patient HX: C/O palpitations with hypertension. Elevated d dimer. ; Additional info: Tachycardia, chest pain, elevated ddimer TECHNIQUE: Imaging protocol: Computed tomographic angiography of the chest with contrast. 3D rendering (Not supervised by radiologist): MIP and/or 3D reconstructed images were created by the technologist. Radiation optimization: All CT scans at this facility use at least one of these dose optimization techniques: automated exposure control; mA and/or kV adjustment per patient size (includes targeted exams where dose is matched to clinical indication); or iterative reconstruction. Contrast material: OMNI 350; Contrast volume: 78 ml; Contrast route: INTRAVENOUS (IV); COMPARISON: CR (CHEST, ) 06/11/2021 8:59 PM RADIATION DOSE METRICS: Total DLP (mGy-cm): 577.87 FINDINGS: Pulmonary arteries: A small subsegmental pulmonary embolus is present in the right lower lobe lateral basilar segmental pulmonary artery. Aorta: Unremarkable. No aortic aneurysm. No aortic dissection. Lungs: Subsegmental atelectasis versus mild scarring is seen in the right middle lobe and lingula. The lungs are otherwise clear. Pleural spaces: Unremarkable. No pneumothorax. No pleural effusion. Heart: The heart is normal in size. No evidence of right heart strain Lymph nodes: Unremarkable. No enlarged lymph nodes. Gallbladder and bile ducts: The gallbladder has been removed. No biliary ductal dilatation. Bones/joints: Pectus excavatum is noted. No acute fracture. Small calcification is observed posterolateral to the right humeral head which appears to be within the the rotator cuff. Soft tissues: Unremarkable. CT/CT angio chest PE protcl [id number] IMPRESSION: Tiny subsegmental right lower lobe pulmonary embolus. No evidence of right heart strain. Rosas Hartman was informed of exam results at 06/11/2021 10:41 PM CDT.
[2021-06-11] MEDS: iohexol 350 mg/mL 100 mL Btl IV (22:21)
--- NOTE | 2021-06-11 22:51 | ECG_ITS ---
[facility] Test Date: 2021-06-11 Pat Name: Nery Marie Department: Room: Gender: Female Pharmacognosy Teacher: : 1980 Requested By: Rosas Hartman Order Number: [id number] Zulma MD: Jc Ivy M.D. Measurements Intervals [place] Rate: 81 P: 0 HI: 129 QRS: -8 QRSD: 85 T: 20 QT: 381 QTc: 444 Interpretive Statements SINUS RHYTHM LOW QRS VOLTAGE IN PRECORDIAL LEADS [QRS DEFLECTION < 1.0 mV IN CHEST LEADS] MINIMAL VOLTAGE CRITERIA FOR LVH, CONSIDER NORMAL VARIANT [MEETS CRITERIA IN ONE OF: R(aVL), S(V1), R(V5), R(V5/V6)+S(V1)] INTERPRETATION BASED ON A DEFAULT AGE OF 40 YEARS Compared to ECG 06/11/2021 20:26:18 Low QRS voltage now present Electronically Signed On 06-12-2021 13:55:17 CDT by Jc Ivy M.D. [id number]
[2021-06-11 23:21] LABS: NT Pro B Type Natriuretic Pept 5 pg/mL (0-125)
[2021-06-11] MEDS: apixaban 5 mg Tablet 10 MG PO (23:25)
[2021-06-11 23:27] LABS: Troponin 5 2HR Delta 0 ABS# (0-10)
[2021-06-11 23:44] VITALS: BP 136/70; PULSE 85; RESP 18; O2SAT 98
== END 2021-06-11 23:46 | disposition home or self-care (01) ==
PROVIDERS: Emergency Provider Emergency Medicine; PCP Family Medicine
DX: I26.93 Single subsegmental thrombotic pulmonary embolism without acute cor pulmonale (principal); R00.2 Palpitations; R07.9 Chest pain, unspecified; Q67.6 Pectus excavatum; R42 Dizziness and giddiness
CPT/HCPCS: 71045; 71275; 80053; 81003; 81025; 83690; 83880; 84443; 84484; 85025; 85378; 93005; 96360; 99284; J7030; Q9967

== ENCOUNTER → 2021-07-15 15:04 | Outpatient (BNVA) | payer OTHER, SELFPAY | PROVIDERS: PCP Family Medicine; Visit Provider Family Medicine | DX: D75.839 Thrombocytosis, unspecified (principal) | CPT/HCPCS: 85025 ==

== ENCOUNTER 2021-07-16 22:28 | Emergency (ER) | payer OTHER, SELFPAY ==
[2021-07-16 22:44] VITALS: BP 154/80; PULSE 77; RESP 17; O2SAT 99; BMI 29.0
--- NOTE | 2021-07-16 22:59 | XRR_ITS ---
PROCEDURE INFORMATION: Exam: XR Chest Exam date and time: 07/16/2021 11:05 PM Age: 41 years old Clinical indication: Pain; Chest pressure; Prior surgery; Surgery type: Gb. Breast reduction. ; Patient HX: C/O chest discomfort with fever. Diagnosed with pe last month. TECHNIQUE: Imaging protocol: XR of the chest. Views: 2 views. COMPARISON: CR (CHEST, ) 06/11/2021 8:59 PM FINDINGS: Lungs: Bibasilar atelectasis versus infiltrate. Pleural spaces: Unremarkable. No pleural effusion. No pneumothorax. Heart/Mediastinum: Cardiomegaly. Bones/joints: Unremarkable. XR/XR chest 2V* [id number] IMPRESSION: 1. Cardiomegaly. 2. Bibasilar atelectasis versus infiltrate.
[2021-07-16 23:19] VITALS: BP 137/61; PULSE 68; RESP 16; TEMP 36.8; O2SAT 97
--- NOTE | 2021-07-16 23:31 | ED_ITS ---
HPI - General Adult General: Chief complaint: General Medical Stated complaint: had blood clot in lungs Time Seen by Provider: 07/16/21 22:49 History of Present Illness: 41-year-old female comes in today for concerns of elevated white blood cell count and feeling of malaise. Patient had some labs done at her primary care and noted that her white count was 12,000, and her platelets were elevated in the 500s. Patient at the end of May was diagnosed with a subsegmental PE. Patient had COVID-19 in April. Patient reports feeling ill since March. Patient reports fevers on and off. Patient came in tonight due to her abnormalities and concerned that she may have underlying infection. Associated symptoms: Reports malaise; Deny chest pain or dyspnea Review of Systems Const: Reports: fever(s) and malaise Card: Denies: chest pain Resp: Denies: dyspnea GI: Denies: diarrhea : Denies: difficulty voiding PFSH ED PFSH: Medical History (Updated 07/17/21 @ 01:18 by MIN Moore) Chronic post-traumatic stress disorder Depression with anxiety Currently on medication managed by PMD. Generalized anxiety disorder Hearing impaired Major depressive disorder, recurrent episode, moderate with anxious distress No pertinent past medical history Denies diabetes, asthma, hypertension, seizures, DVT/PE PCP: Dr. Lorenzo Psych[facility] Pulmonary embolism Surgical History H/O umbilical hernia repair 09/28/2017----Surgery performed by Dr. Weiss . Patient does not know if mesh was used. Hx of lumpectomy Lumpectomy performed by Dr. Weiss from the right axilla S/P abdominoplasty in 2010 S/P adenoidectomy Performed as a child S/P appendectomy Laparoscopic appendectomy performed on 08/09/[address] Weiss. S/P bilateral breast reduction Performed in [place] and [facility] in 2013 S/P cholecystectomy Laparoscopic cholecystectomy performed on 05/26/[address] Weiss [place] [facility] [place] S/P dilation and curettage States that she has had 2 D&C about 2 weeks for heavy bleeding after both her deliveries S/P hemorrhoidectomy First on 08/29/2013 and a second surgery performed for recurrence on 07/13/2017---both procedures performed by Dr. Weiss [place] [facility] [place] S/P LEEP Performed in 2012 for an abnormal Pap smear by Dr. Slaughter. She states all Pap smears have been negative since then. Status post corneal transplant 05/2017 Status post surgery Anterior colporrhaphy with cystoscopy: Performed by Dr. Slaughter at the surgery center on 03/27/2012 for cystocele with stress urinary incontinence. Family History Mother Breast cancer Diagnosed in her late 40s Hypertension Hyperlipidemia Grandmother Lung cancer maternal Breast cancer maternal, diagnosed in her late 40s Hypertension maternal Grandfather Primary cancer of bone marrow maternal Stroke maternal Denies family history of Colon cancer Ovarian cancer Diabetes Heart disease Uterine cancer Thyroid condition Social History Smoking and tobacco status: never smoked Alcohol intake: unknown Physical Exam Const: COMMON NORMALS: alert HENMT: COMMON NORMALS: atraumatic HEAD & SCALP: atraumatic Neck/C-Spine: COMMON NORMALS: full ROM and no meningeal signs Resp: COMMON NORMALS: normal respiratory effort and clear to auscultation bilaterally AUSCULTATION: clear to auscultation bilaterally Cardio: COMMON NORMALS: regular rate RATE: regular rate Extremity: COMMON NORMALS: normal to inspection Neuro: SENSORIUM/ORIENTATION: Yes alert MENINGEAL SIGNS: Yes no meningeal signs Skin: COMMON NORMALS: no rashes or lesions noted GENERAL SKIN EXAM: no rashes or lesions noted Course Vital Signs: Vital signs: Vital Signs Temperature 98.3 F 07/16/21 23:19 Pulse Rate 68 07/16/21 23:19 Respiratory Rate 16 07/16/21 23:19 Blood Pressure 137/61 07/16/21 23:19 Pulse Oximetry 97 07/16/21 23:19 MDM - General Adult Medical Decision Making 41-year-old female comes in today for concerns of fever and abnormal lab results. Patient reports since March she has had malaise. In April she was diagnosed with COVID. At the end of May she was diagnosed with a small pulmonary embolism. Patient reports that she continues to have the malaise and now has continued to have occasional fevers. Lab work is shown some elevation in white blood cell count, a mild increase in platelets, and occasional anemia. On exam patient appears nontoxic, lungs are clear to auscultation with some decreased breath sounds. Skin is warm and dry. Vital signs are normal. Differential diagnosis includes bacterial infection, anxiety, myocarditis, septicemia. Blood cultures were collected. CRP was normal. Laboratory values were unremarkable. Chest x-ray noted some atelectasis in bilateral lower lung hoang and some mild cardiomegaly. Patient was concerned about her chest x-ray I recommend that we go ahead and have her see crepe laminator operator for further evaluation most likely maybe she has some mild cardiomegaly due to her pulmonary embolism which is most likely secondary to the COVID that she had at the end of April. Patient appears in no acute distress however I cannot explain why patient has occasional fevers. CRP is unremarkable and I do not think she has a bacterial infection. I recommended patient keep with the plan from Dr. Lorenzo for her to see the seasonal warehouse associate for further evaluation. Infectious disease may also be consulted then if it feels warranted. Lab Data : 07/17/21 00:05 07/17/21 00:36 Radiology Impressions Chest X-Ray 07/16/21 22:59 IMPRESSION: 1. Cardiomegaly. 2. Bibasilar atelectasis versus infiltrate. Laboratory Results WBC 10.0 10^3/uL (4.0-10.0) 07/17/21 00:05 RBC 4.05 10^6/uL (4.1-5.3) L 07/17/21 00:05 Hgb 11.0 g/dL (11.5-15.3) L 07/17/21 00:05 Hct 34.5 % (37.0-47.0) L 07/17/21 00:05 MCV 85.2 fl (81-99) 07/17/21 00:05 MCH 27.2 pg (28.0-34.0) L 07/17/21 00:05 MCHC 31.9 g/dL (30.0-36.0) 07/17/21 00:05 RDW 13.4 % (12.1-15.1) 07/17/21 00:05 Plt Count 463 10^3/cmm (130-400) H 07/17/21 00:05 MPV 10.2 fL (7.4-10.4) 07/17/21 00:05 Neut % (Auto) 63.0 % 07/17/21 00:05 Lymph % (Auto) 25.4 % 07/17/21 00:05 Gonzales % (Auto) 10.4 % 07/17/21 00:05 Eos % (Auto) 0.4 % 07/17/21 00:05 Baso % (Auto) 0.3 % 07/17/21 00:05 Neut # (Auto) 6.33 10^3/uL (1.8-7.7) 07/17/21 00:05 Lymph # (Auto) 2.6 10^3/uL (0.8-4.8) 07/17/21 00:05 Gonzales # (Auto) 1.0 10^3/uL (0.2-0.9) H 07/17/21 00:05 Eos # (Auto) 0.0 10^3/uL (0.0-0.8) 07/17/21 00:05 Baso # (Auto) 0.0 10^3/uL (0.0-0.1) 07/17/21 00:05 Nucleated RBC % (auto) 0 % 07/17/21 00:05 Nucleated RBCs # 0.0 /100WBC 07/17/21 00:05 Sodium 139 mmol/L (136-145) 07/17/21 00:36 Potassium 3.8 mmol/L (3.5-5.1) 07/17/21 00:36 Chloride 104 mmol/L (98-107) 07/17/21 00:36 Carbon Dioxide 25 mmol/L (22-29) 07/17/21 00:36 Anion Gap 13.8 (5-19) 07/17/21 00:36 BUN 18 mg/dL (6-20) 07/17/21 00:36 Creatinine 0.7 mg/dL (0.5-0.9) 07/17/21 00:36 GFR Calculation 93.2 mL/min (90-130) 07/17/21 00:36 Glucose 100 mg/dL (65-115) 07/17/21 00:36 Calculated Osmolality 290 mOsm/kg (285-295) 07/17/21 00:36 Calcium 9.4 mg/dL (8.5-10.5) 07/17/21 00:36 Total Bilirubin 0.2 mg/dL (0.15-1.2) 07/17/21 00:36 AST 14 U/L (0-32) 07/17/21 00:36 ALT 16 U/L (0-33) 07/17/21 00:36 Alkaline Phosphatase 58 IU/L (35-105) 07/17/21 00:36 C-Reactive Protein 3.0 mg/L (0.0-4.9) 07/17/21 00:36 Total Protein 7.0 g/dL (6.6-8.7) 07/17/21 00:36 Albumin 4.5 g/dL (3.5-5.2) 07/17/21 00:36 Globulin 2.5 g/dL (1.3-4.6) 07/17/21 00:36 Urine Color Yellow (Yellow) 07/16/21 23:10 Urine Appearance Hazy (CLEAR) A 07/16/21 23:10 Urine pH 7 (5-7) 07/16/21 23:10 Ur Specific Bill[place] 1.015 (1.005-1.030) 07/16/21 23:10 Urine Protein Neg (Negative) 07/16/21 23:10 Urine Glucose (UA) Norm (Normal) 07/16/21 23:10 Urine Ketones Negative (Negative) 07/16/21 23:10 Urine Blood 2+ (Negative) H 07/16/21 23:10 Urine Nitrate Negative (Negative) 07/16/21 23:10 Urine Bilirubin Neg (Negative) 07/16/21 23:10 Urine Urobilinogen Norm mg/dL (Negative) 07/16/21 23:10 Ur Leukocyte Esterase Negative (Negative) 07/16/21 23:10 Urine RBC 0-4 /hpf (0-2) H 07/16/21 23:10 Urine WBC 0-4 /hpf (0-5) H 07/16/21 23:10 Ur Squamous Epith Cells 5-10 /hpf (0-5) H 07/16/21 23:10 Amorphous Sediment 1+ /hpf 07/16/21 23:10 Urine Bacteria Trace /hpf (NONE) 07/16/21 23:10 Urine Mucus Trace /hpf 07/16/21 23:10 Discharge Plan Discharge Patient Disposition: Home Clinical Impression: Cardiomegaly, Fever of unknown origin Pulmonary embolism Qualifiers: Pulmonary embolism type: unspecified Chronicity: unspecified Acute cor pulmonale presence: without acute cor pulmonale Qualified Code(s): I26.99 - Other pulmonary embolism without acute cor pulmonale Condition: Stable Prescriptions: No Action multivitamin Capsule 1 cap PO DAILY 0RF MegaRed [place]-3 Krill Oil [phone] mg capsule 1 cap PO DAILY 0RF prednisolone acetate 1 % drops,suspension 1 drp ophthalmic (eye) DAILY 0RF Rx Instructions: 5 days weekly levocetirizine 5 mg tablet 5 mg PO DAILY Qty: 90 1RF clobetasol 0.05 % shampoo 1 applic topical .2 times weekly Qty: 118 3RF Rx Instructions: Lather onto scalp, let sit 5 minutes, then rinse metoprolol tartrate 25 mg tablet 12.5 mg PO BID Qty: 90 1RF Eliquis 5 mg tablet 5 mg PO BID 30 Days Qty: 60 4RF clobetasol 0.05 % solution 1 applic topical DAILY Qty: 25 3RF Rx Instructions: Apply a few drops to affected area on the scalp prn fenofibrate nanocrystallized 145 mg tablet 145 mg PO DAILY Qty: 90 1RF bupropion HCl [Wellbutrin SR] 150 mg tablet sustained-release 12 hr 300 mg PO .morning Qty: 60 3RF Rx Instructions: Take two tablets every morning Eliquis DVT-PE Treat 30D Start 5 mg (74 tabs) tablets,dose pack See Rx Instructions .ROUTE .COMPLEX Qty: 74 0RF Rx Instructions: orally per package directions Discharge Orders: Discharge ED (Routine); Ordered 07/17/21 Ordered By: Kevin Boyer Referrals: Ashleigh Lorenzo DO [Primary Care Provider] - Discharge Diet: Usual diet Discharge Activity: Increase activity as tolerated Patient Instructions: Pulmonary Embolism (ED) Activity Restrictions/Additional Instructions: Continue with routine medication. Case management will contact you regarding cardiology follow-up. Continue with plan to see seasonal warehouse associate. Blood cultures will be done in about 3 to 5 days and we will notify your primary care of r tono. Return to ER for increased shortness of breath, chest pain, or new concerns. Coding Level of Care Code ED Kettle Cook for Martin Fwd Exam Detailed
[2021-07-16 23:33] LABS: Add Urine Microscopic? YES; Bilirubin Urine Neg (Negative); Blood Urine 2+ (Negative); Glucose Urine UA Norm (Normal); Ketones Urine Negative (Negative); Leukocyte Esterase Urine Negative (Negative); Nitrate Urine Negative (Negative); Protein Urine Neg (Negative); Specific Gravity, Urine 1.015 (1.005-1.030); Urine Appearance Hazy (CLEAR); Urine Color Yellow (Yellow); Urobilinogen Urine Norm (Negative); pH Urine 7 (5-7)
[2021-07-16 23:40] LABS: Add Urine Culture? No; Amorphous Sediment Urine 1+ /hpf; Bacteria Urine TRACE /hpf; Mucus Urine TRACE /hpf; RBC Urine 0-4 /hpf (0-2); WBC Urine 0-4 /hpf (0-5)
[2021-07-17 00:16] LABS: Basophils % 0.3 %; Eosinophils % 0.4 %; Hematocrit 34.5 % (37.0-47.0); Lymphocytes # 2.6 10^3/uL (0.8-4.8); Lymphocytes % 25.4 %; Mean Corpuscular HGB Conc 31.9 g/dL (30.0-36.0); Mean Corpuscular Hemoglobin 27.2 pg (28.0-34.0); Mean Corpuscular Volume 85.2 fl (81-99); Mean Platelet Volume 10.2 fL (7.4-10.4); Monocytes % 10.4 %; Neutrophils # 6.33 10^3/uL (1.8-7.7); Nucleated Red Blood Cells % 0 %; Platelet Count 463 10^3/cmm (130-400); Red Blood Count 4.05 10^6/uL (4.1-5.3); Red Cell Distribution Width 13.4 % (12.1-15.1)
[2021-07-17 00:57] LABS: Alanine Aminotransferase 16 U/L (0-33); Albumin Level 4.5 g/dL (3.5-5.2); Alkaline Phosphatase 58 IU/L (35-105); Anion Gap 13.8 (5-19); Aspartate Amino Transferase 14 U/L (0-32); Blood Urea Nitrogen 18 mg/dL (6-20); Calcium 9.4 mg/dL (8.5-10.5); Carbon Dioxide 25 mmol/L (22-29); Chloride 104 mmol/L (98-107); Globulin 2.5 g/dL (1.3-4.6); Glomerular Filtration Rate 93.2 mL/min (90-130); Glucose 100 mg/dL (65-115); Osmolality Calculated 290 mOsm/kg (285-295); Potassium 3.8 mmol/L (3.5-5.1); Sodium 139 mmol/L (136-145); Total Bilirubin 0.2 mg/dL (0.15-1.2)
[2021-07-17 01:35] VITALS: BP 131/69; PULSE 71; RESP 16; O2SAT 97
--- NOTE | 2021-07-20 10:47 | DCPLANNER ---
Addendum entered by Zuly Grant 07/31/21 08:33: Patient had a follow up appointment scheduled for 07.27.21 with [facility] - patient did attend appointment. Addendum entered by Zuly Grant 07/22/21 22:06: Patient has a follow up appointment scheduled for Tuesday, July 27, 2021 at 10:[address] Mauro at [facility]. Clinic will call patient with appointment information. Original Note: print shop manager had message to schedule a follow up appointment for patient with [facility]. print shop manager sent patients information to the front office staff at [facility]. Patients information will be printed and reviewed. Clinic will call patient with appointment information.
== END 2021-07-17 01:34 | disposition home or self-care (01) ==
PROVIDERS: Emergency Provider Nurse Practitioner Family; PCP Family Medicine
DX: R53.81 Other malaise (principal); I51.7 Cardiomegaly; R50.9 Fever, unspecified; Z86.16 Personal history of COVID-19
CPT/HCPCS: 71046; 80053; 81001; 85025; 86140; 87040; 99283

== ENCOUNTER → 2021-07-27 10:00 | Outpatient (BNVA) | payer OTHER, SELFPAY | PROVIDERS: PCP Family Medicine; Visit Provider Internal Medicine Cardiovascular Disease | DX: R07.9 Chest pain, unspecified (principal); R00.2 Palpitations; I26.99 Other pulmonary embolism without acute cor pulmonale; E78.1 Pure hyperglyceridemia; H91.90 Unspecified hearing loss, unspecified ear; F41.1 Generalized anxiety disorder | CPT/HCPCS: 99204 ==

== ENCOUNTER → 2021-10-19 15:58 | Outpatient (BNVA) | payer OTHER, SELFPAY | PROVIDERS: PCP Family Medicine; Visit Provider Obstetrics & Gynecology | DX: R32 Unspecified urinary incontinence (principal) | CPT/HCPCS: 87086 ==

== ENCOUNTER → 2021-10-26 10:31 | Outpatient (BNVA) | payer OTHER, SELFPAY | PROVIDERS: PCP Family Medicine; Visit Provider Internal Medicine Cardiovascular Disease | DX: R07.9 Chest pain, unspecified (principal); R00.2 Palpitations; I26.99 Other pulmonary embolism without acute cor pulmonale; F41.1 Generalized anxiety disorder | CPT/HCPCS: 99214 ==

== ENCOUNTER → 2021-10-27 10:07 | Outpatient (BNVA) | payer OTHER, SELFPAY | PROVIDERS: PCP Family Medicine; Visit Provider Family Medicine | DX: Z51.81 Encounter for therapeutic drug level monitoring (principal); E78.1 Pure hyperglyceridemia; G47.10 Hypersomnia, unspecified; Z13.220 Encounter for screening for lipoid disorders; H91.90 Unspecified hearing loss, unspecified ear; F41.8 Other specified anxiety disorders; I26.99 Other pulmonary embolism without acute cor pulmonale; R07.9 Chest pain, unspecified; E66.9 Obesity, unspecified | CPT/HCPCS: 80053; 80061; 85025 ==

== ENCOUNTER 2021-11-23 13:41 | Outpatient (CLI) | payer OTHER, SELFPAY ==
--- NOTE | 2021-11-23 13:43 | MM_ITS ---
WS: [id number] BILATERAL 3D TOMOSYNTHESIS DIGITAL SCREENING MAMMOGRAPHY WITH CAD CLINICAL INFORMATION: SCREENING HISTORY: Screening mammogram. No current complaints. COMPARISON: November 19, 2020 TECHNIQUE: Bilateral CC and MLO views. FINDINGS: History of bilateral breast reduction. Scattered fibroglandular densities bilaterally. Incidental punctate calcifications similar to previou s. No suspicious focal mass, asymmetry, calcifications, or architectural distortion. No evidence of m alignancy. MM/[place] [id number] IMPRESSION: BI-RADS: 2-Benign FOLLOW UP: 1 Year Follow-up Recommend return to annual screening mammography.
== END 2021-11-23 13:42 | disposition home or self-care (01) ==
LOC: RAD 13:42
PROVIDERS: PCP Family Medicine; Visit Provider Family Medicine
DX: Z12.31 Encounter for screening mammogram for malignant neoplasm of breast (principal)
CPT/HCPCS: 77063; 77067

== ENCOUNTER → 2022-01-11 12:05 | Outpatient (BNVA) | payer OTHER, SELFPAY | PROVIDERS: PCP Family Medicine; Visit Provider Family Medicine | DX: R53.81 Other malaise (principal); R53.83 Other fatigue; E53.8 Deficiency of other specified B group vitamins; Z51.81 Encounter for therapeutic drug level monitoring; E61.1 Iron deficiency; K46.9 Unspecified abdominal hernia without obstruction or gangrene; G47.10 Hypersomnia, unspecified; F41.1 Generalized anxiety disorder; R14.0 Abdominal distension (gaseous) | CPT/HCPCS: 82533; 82607; 82728; 83540; 84207; 84439; 84443; 85025 ==

== ENCOUNTER 2022-02-16 20:00 | Outpatient (CLI) | payer OTHER, SELFPAY | END 2022-02-16 20:01 | disposition home or self-care (01) | LOC: SLEEP 02-17 09:28 | PROVIDERS: PCP Family Medicine; Visit Provider Family Medicine | DX: G47.10 Hypersomnia, unspecified (principal); R06.83 Snoring; R53.83 Other fatigue | CPT/HCPCS: 95810 ==

== ENCOUNTER → 2022-04-15 12:00 | Outpatient (BNVA) | payer OTHER, SELFPAY | PROVIDERS: PCP Family Medicine; Visit Provider Family Medicine | DX: E78.1 Pure hyperglyceridemia (principal); Z13.220 Encounter for screening for lipoid disorders; F41.1 Generalized anxiety disorder; R14.0 Abdominal distension (gaseous); R53.81 Other malaise; R53.83 Other fatigue | CPT/HCPCS: 80061 ==

== ENCOUNTER → 2022-04-28 12:02 | Outpatient (BNVA) | payer OTHER, SELFPAY | PROVIDERS: PCP Family Medicine; Visit Provider Family Medicine | DX: E61.1 Iron deficiency (principal); Z51.81 Encounter for therapeutic drug level monitoring | CPT/HCPCS: 82728; 83540; 83550; 85025 ==

== ENCOUNTER → 2022-05-05 11:55 | Outpatient (BNVA) | payer OTHER, SELFPAY | PROVIDERS: PCP Family Medicine; Visit Provider Family Medicine | DX: R53.81 Other malaise (principal); R53.83 Other fatigue; D64.9 Anemia, unspecified; E55.9 Vitamin D deficiency, unspecified | CPT/HCPCS: 82306; 82746 ==

== ENCOUNTER → 2022-07-21 11:32 | Outpatient (BNVA) | payer OTHER, SELFPAY | PROVIDERS: PCP Family Medicine; Visit Provider Family Medicine | DX: D64.9 Anemia, unspecified (principal); E61.1 Iron deficiency; G47.10 Hypersomnia, unspecified | CPT/HCPCS: 82728; 83550; 85025 ==

== ENCOUNTER → 2022-10-26 10:19 | Outpatient (BNVA) | payer OTHER, SELFPAY | PROVIDERS: PCP Family Medicine; Visit Provider Family Medicine | DX: E78.1 Pure hyperglyceridemia (principal); G47.10 Hypersomnia, unspecified; D64.9 Anemia, unspecified | CPT/HCPCS: 80053; 80061; 82728; 83550; 85025 ==

== ENCOUNTER → 2022-10-28 11:30 | Outpatient (BNVA) | payer OTHER, SELFPAY | PROVIDERS: PCP Family Medicine; Visit Provider Nurse Practitioner Women's Health | DX: Z12.4 Encounter for screening for malignant neoplasm of cervix (principal); Z11.51 Encounter for screening for human papillomavirus (HPV); E61.1 Iron deficiency; E78.1 Pure hyperglyceridemia | CPT/HCPCS: 87624 ==

== ENCOUNTER → 2022-11-01 07:51 | Outpatient (BNVA) | payer OTHER, SELFPAY | PROVIDERS: PCP Family Medicine; Visit Provider Nurse Practitioner Women's Health | DX: N92.6 Irregular menstruation, unspecified (principal) | CPT/HCPCS: 76830 ==

== ENCOUNTER 2022-11-29 10:24 | Outpatient (CLI) | payer OTHER, SELFPAY ==
--- NOTE | 2022-11-29 10:29 | MM_ITS ---
WS: [id number] BILATERAL SCREENING DIGITAL TOMOSYNTHESIS MAMMOGRAM WITH CAD HISTORY: Z12.39 - Encounter for other screening for malignant neop... COMPARISON: 11/23/2021, 11/26/2020 Bilateral CC and MLO views with tomosynthesis and synthetic mammography submitted. Computer aided det ection analyzed. Breast composition: There are scattered areas of fibroglandular density. No suspicious masses, microc alcifications or architectural distortion. Tiny punctate calcifications within each breast. IMPRESSION: MM/[place] [id number] BI-RADS: 2-Benign FOLLOW UP: 1 Year Follow-up
== END 2022-11-29 10:25 | disposition home or self-care (01) ==
LOC: RAD 10:25
PROVIDERS: PCP Family Medicine; Visit Provider Nurse Practitioner Women's Health
DX: Z12.31 Encounter for screening mammogram for malignant neoplasm of breast (principal)
CPT/HCPCS: 77063; 77067

== ENCOUNTER → 2022-12-02 12:52 | Outpatient (BNVA) | payer OTHER, SELFPAY | PROVIDERS: PCP Family Medicine; Visit Provider Dermatology | DX: L40.8 Other psoriasis (principal); D22.61 Melanocytic nevi of right upper limb, including shoulder; D22.5 Melanocytic nevi of trunk | CPT/HCPCS: 99213 ==

== ENCOUNTER 2022-12-21 08:18 | Day surgery (SDC) | payer OTHER, SELFPAY ==
[2022-12-17 11:12] LABS: Basophils % 0.6 %; Eosinophils # 0.1 10^3/uL (0.0-0.8); Eosinophils % 1.7 %; Hematocrit 40.3 % (36-47); Lymphocytes # 2.2 10^3/uL (0.8-4.8); Lymphocytes % 30.4 %; Mean Corpuscular Hemoglobin 30.2 pg (27-33); Mean Corpuscular Volume 88.8 fl (85-98); Mean Platelet Volume 9.8 fL (7.4-10.4); Monocytes # 0.6 10^3/uL (0.2-0.9); Monocytes % 8.8 %; Neutrophils # 4.25 10^3/uL (1.8-7.7); Neutrophils % 58.4 %; Nucleated Red Blood Cells % 0 %; Platelet Count 368 10^3/cmm (157-399); Red Blood Count 4.54 10^6/uL (3.85-5.65); Red Cell Distribution Width 12.4 % (12.1-15.1); White Blood Count 7.27 10^3/uL (3.29-11.43)
[2022-12-17 11:26] LABS: Add Urine Microscopic? YES; Bilirubin Urine Neg (Negative); Blood Urine Trace (Negative); Glucose Urine UA Norm (Normal); Ketones Urine Negative (Negative); Leukocyte Esterase Urine Negative (Negative); Nitrate Urine Negative (Negative); Protein Urine Neg (Negative); Urine Appearance Clear (CLEAR); Urine Color Yellow (Yellow); Urobilinogen Urine Norm (Negative); pH Urine 5 (5-7)
[2022-12-17 11:27] LABS: RBC Urine RARE /hpf (0-2)
[2022-12-17 11:28] LABS: Add Urine Culture? No
[2022-12-17 11:30] LABS: Alanine Aminotransferase 19 U/L (0-33); Alkaline Phosphatase 47 U/L (35-105); Anion Gap 16.2 (5-19); Aspartate Amino Transferase 16 U/L (0-32); Blood Urea Nitrogen 20 mg/dL (6-20); Calcium 9.5 mg/dL (8.5-10.5); Carbon Dioxide 26 mmol/L (22-29); Chloride 99 mmol/L (98-107); Glomerular Filtration Rate 92.7 mL/min (90-130); Glucose 101 mg/dL (65-115); Osmolality Calculated 287 mOsm/kg (285-295); Potassium 4.2 mmol/L (3.5-5.1); Sodium 137 mmol/L (136-145); Total Bilirubin 0.2 mg/dL (0.15-1.2)
[2022-12-21] VITALS (11 sets, daily range): BP systolic 112–143; BP diastolic 57–81; PULSE 72–99; RESP 12–18; TEMP 36.7; O2SAT 92–98
[2022-12-21] MEDS: scopolamine 1.5 Patch 1 PATCH TRANSDERMA (08:56)
[2022-12-21] MEDS: sodium chloride 0.9% 500 ML IV (08:57)
[2022-12-21] MEDS: vancomycin 1,000 MG in sodium chloride 0.9% 250 ML 250 MG IV (09:10)
[2022-12-21] MEDS: sodium chloride 0.9% 1,000 ML 30 ML IV (09:59)
--- NOTE | 2022-12-21 10:04 | P.ANESASSM_ITS ---
Pre-Anesthetic Assessment Height/Weight: Height 1.6 m Temp Pulse Resp BP Pulse Ox O2 Del Method 98.1 F 72 16 143/81 98 Room Air 12/21/22 08:38 12/21/22 08:38 12/21/22 08:38 12/21/22 08:56 12/21/22 08:38 12/21/22 08:40 Preop Diagnosis: Abnormal uterine bleeding, endometrial polyp Operation Date: 12/21/22 09:50 Proposed Procedures p Hysteroscopy, dilation and curettage with Myosure 81703,18972,N92.0,N84.0(Not Applicable) - Janes Zimmer MD s Dilation And Curettage (D&C)(Not Applicable) - Janes Zimmer MD Familial anesthetic complications: none Was Beta Jacob taken within 24 hours: N/A Was Clonidine taken within 24 hours: N/A Last intake: Intake Last Liquid Date 12/20/22 Last Liquid Time 22:30 Last Solid Date 12/20/22 Last Solid Time 22:30 Social No alcohol and No tobacco Exam alert, oriented x 3, clear to auscultation bilaterally and regular rate & rhythm Airway Submandibular: within normal limits Cervical ROM: within normal limits Mallampati: Class II Dentition: full CV/HEM Anemia GI Gastroesophageal Reflux Disease Metabolic Hyperlipidemia Neuropsych Anxiety and Depression Hearing impaired Anesthetic Plan ASA status: 2 Anesthesia: General Medications/Allergies Home Medications Medication Instructions Recorded Confirmed Last Taken Type multivitamin 1 cap PO DAILY 07/24/19 12/17/22 12/17/22 History clobetasol 0.05 % scalp solution 1 applic topical DAILY #25 mL 01/21/20 12/17/22 06/11/21 Rx prednisolone acetate 1 % eye 1 drp ophthalmic (eye) DAILY 09/01/20 12/17/22 12/20/22 History drops,suspension levocetirizine 5 mg tablet 5 mg PO DAILY PRN Allergy Symptoms 07/27/21 12/21/22 12/20/22 History clobetasol 0.05 % shampoo 1 applic topical .2 times weekly 12/07/21 12/17/22 Unk nown Rx #118 mL esomeprazole magnesium 20 mg 40 mg PO BID 01/20/22 12/17/22 12/20/22 History tablet,delayed release (Nexium 24HR) fenofibrate nanocrystallized 145 145 mg PO DAILY #90 tabs 06/01/22 12/17/22 12/20/22 Rx mg tablet famotidine 20 mg tablet (Pepcid AC) 20 mg PO DAILY 10/28/22 12/17/22 12/20/22 History Allergies Allergy/AdvReac Type Severity Reaction Status Date / Time nitrofurantoin Allergy Hives, Verified 12/03/22 07:40 [From Macrodantin] Nausea Penicillins Allergy Hives, Verified 12/03/22 07:40 nausea Sulfa (Sulfonamide Allergy Hives Verified 12/03/22 07:40 Antibiotics) metronidazole [From Flagyl] AdvReac Yeast Verified 12/03/22 07:40 infection, nausea, diarrhea mirtazapine AdvReac Dizziness, Verified 12/03/22 07:40 just didn't feel well sertraline [From Zoloft] AdvReac tachycardia Verified 12/03/22 07:40 Current Medications Generic Name Dose Route Start Last Admin Trade Name Freq PRN Reason Stop Dose Admin Sodium Chloride 1,000 mls @ 30 mls/hr 12/21/22 08:30 12/21/22 09:59 Sodium Chloride 0.9% IV 12/22/22 08:29 30 mls/hr .Q24H ALEX Administration PFSH Anesthesia Medical History Chronic post-traumatic stress disorder Depression with anxiety Currently on medication managed by PMD. Hearing impaired Hiatal hernia No pertinent past medical history Denies diabetes, asthma, hypertension, seizures, DVT PCP: Dr. Nuñez Psychiatric care Pulmonary embolism Reports having COVID in May 2021 and had her PE and was on Eliquis which was stopped after 6 months Surgical History H/O shoulder surgery Had right shoulder surgery in September 2021 for her rotator cuff H/O umbilical hernia repair 09/28/2017----Surgery performed by Dr. Weiss . Patient does not know if mesh was used. Hx of endoscopy (~01/2022) GI upset Hx of lumpectomy Lumpectomy performed by Dr. Weiss from the right axilla S/P abdominoplasty in 2010 S/P adenoidectomy Performed as a child S/P appendectomy Laparoscopic appendectomy performed on 08/09/[address] Weiss. S/P bilateral breast reduction Performed in [place] and [facility] in 2013 S/P cholecystectomy Laparoscopic cholecystectomy performed on 05/26/[address] Weiss at [facility] [place]. S/P dilation and curettage States that she has had 2 D&C about 2 weeks for heavy bleeding after both her deliveries S/P hemorrhoidectomy First on 08/29/2013 and a second surgery performed for recurrence on 07/13/2017---both procedures performed by Dr. Weiss at [facility] [place]. S/P LEEP Performed in 2012 for an abnormal Pap smear by Dr. Slaughter. She states all Pap smears have been negative since then. Status post corneal transplant 05/2017 Status post surgery Anterior colporrhaphy with cystoscopy: Performed by Dr. Slaughter at the surgery center on 03/27/2012 for cystocele with stress urinary incontinence. Family History Mother Breast cancer Diagnosed in her late 40s Hypertension Hyperlipidemia Psychiatric illness Committed Suicide after battling breast cancer Grandmother Lung cancer maternal Breast cancer maternal, diagnosed in her late 40s Hypertension maternal Heart disease Stroke Grandfather Primary cancer of bone marrow maternal Stroke Denies family history of Ovarian cancer Diabetes Uterine cancer Thyroid condition Data Anesthesia 12/17/22 10:56 12/17/22 10:56 Blood Bank 12/21/22 08:50 Blood Type O Positive Rho(D) Type Positive Antibody Screen Negative Cardiac Studies: No Data to Display
--- NOTE | 2022-12-21 10:51 | W.PM.OPSUD ---
Surgery/Procedure H&P Update DATE OF PROCEDURE: December 21, 2022 DATE H&P PERFORMED: 12/03/22 H&P UPDATE INFORMATION: I have reviewed H&P completed within last 30 days, I have examined patient prior to procedure and No changes to prior documentation PREOP DIAGNOSIS: Abnormal uterine bleeding, endometrial polyp PLANNED PROCEDURE: Operation Date: 12/21/22 09:50 Proposed Procedures p Hysteroscopy, dilation and curettage with Myosure [id number],38388,N92.0,N84.0(Not Applicable) - Janes Zimmer MD s Dilation And Curettage (D&C)(Not Applicable) - Janes Zimmer MD
[2022-12-21] MEDS: lidocaine-epi 2% 20 mL INJ 10 ML INJECTION (11:19)
--- NOTE | 2022-12-21 11:47 | PM.OP ---
Operative Report Date of procedure: December 21, 2022 Post-op diagnosis: Endometrial polyp Post-op findings: Janes Zimmer MD Procedure done: Hysteroscopy and D&C via MyoSure Specimens removed/disposition: Endometrial curettings Surgeon: Janes Zimmer MD Estimated blood loss (mL): 5 IV fluids (mL): 600 Procedure: After informed consent, the risks included but were not limited to bleeding, infection, injury to internal organs. The patient was counseled on a possible laparotomy and on the potential need for hysterectomy. The patient expressed understanding of the risks involved, all questions were answered, and the patient consented to the procedure. The patient was taken to the operating room where general anesthesia was administered. She was placed in the dorsal lithotomy position and prepped and draped in sterile fashion. A time out procedure was performed. The patient was examined under anesthesia and found to have a normal uterus with normal adnexa. A sterile weight speculum was placed in the vagina. The uterus was then gently sounded to 10 cm, and the cervix was dilated. The 0 degrees MyoSure hysteroscope was advanced gently to the uterine fundus while visualizing the monitor. Survey of the uterine cavity showed: Small posterior wall polyp, the fundus shows normal proliferative endometrium; left ostium was visualized, and lateral wall with proliferative endometrium; right ostium visualized, and lateral wall with proliferative endometrium; anterior and posterior trotter are with proliferative endometrium; endocervical canal is normal. The MyoSure device was advanced and the direct visualization the polyp was morcellated without complication. At the end of morcellation the fluid deficit was 370 mL and was estimated at approximately 200 mL were on the floor. There was minimal bleeding noted and the tenaculum removed with goad hemostasis noted. The patient tolerated the procedure well. The patient was taken to the recovery area in stable condition.
[2022-12-21] MEDS: HYDROmorphone 1 mg/mL INJ 1 mL 0.25 MG IVP (12:10)
--- NOTE | 2022-12-21 17:09 | ANE.PACU2 ---
Inpatient post-anesthesia follow up: Airway intact: Yes Vital signs: Temperature 98.1 F Pulse Rate 82 Respiratory Rate 18 Blood Pressure 122/68 Pulse Oximetry 94 Oxygen Delivery Me thod Room Air Oxygen Flow Rate Fraction of Inspir ed Oxygen Hydration adequate: Yes Nausea and vomiting: No Pain level: 3 Mental status: Baseline
[2022-12-22 09:09] LABS: OR HCG Qualitative Urine Negative (Negative)
== END 2022-12-21 13:10 | disposition home or self-care (01) ==
PROVIDERS: PCP Family Medicine; Visit Provider Obstetrics & Gynecology
PROC: 0UDB8ZZ Extraction of Endometrium, Via Natural or Artificial Opening Endoscopic (ICD-10-PCS; CPT 58558; principal; 2022-12-21 09:40)
PROC: (CPT 58120; 2022-12-21 09:40)
DX: N84.0 Polyp of corpus uteri (principal); K21.9 Gastro-esophageal reflux disease without esophagitis; E78.5 Hyperlipidemia, unspecified
CPT/HCPCS: 58558; 36415; 80053; 81001; 81025; 84703; 85025; 86850; 86900; 88305; J1100; J1170; J2250; J2405; J2704; J3010; J3370; J7030; J7040; J7050

== ENCOUNTER → 2023-01-31 16:11 | Outpatient (BNVA) | payer OTHER, SELFPAY | PROVIDERS: PCP Family Medicine; Visit Provider Obstetrics & Gynecology | DX: Z48.816 Encounter for surgical aftercare following surgery on the genitourinary system (principal) | CPT/HCPCS: 85025 ==

== ENCOUNTER → 2023-04-12 10:44 | Outpatient (BNVA) | payer OTHER, SELFPAY | PROVIDERS: PCP Family Medicine; Visit Provider Family Medicine | DX: E61.1 Iron deficiency (principal); E78.1 Pure hyperglyceridemia; Z51.81 Encounter for therapeutic drug level monitoring | CPT/HCPCS: 80061; 82728; 83550; 85025 ==

== ENCOUNTER → 2023-05-05 16:04 | Outpatient (BNVA) | payer OTHER, SELFPAY | PROVIDERS: PCP Family Medicine; Visit Provider Obstetrics & Gynecology | DX: N92.0 Excessive and frequent menstruation with regular cycle (principal) | CPT/HCPCS: 83001; 84443 ==

== ENCOUNTER → 2023-05-31 10:10 | Outpatient (BNVA) | payer OTHER, SELFPAY | PROVIDERS: PCP Family Medicine; Visit Provider Obstetrics & Gynecology | DX: R68.82 Decreased libido (principal); N92.0 Excessive and frequent menstruation with regular cycle | CPT/HCPCS: 84402 ==

== ENCOUNTER → 2023-10-11 09:52 | Outpatient (BNVA) | payer OTHER, SELFPAY | PROVIDERS: PCP Family Medicine; Visit Provider Family Medicine | DX: Z51.81 Encounter for therapeutic drug level monitoring (principal); E61.1 Iron deficiency | CPT/HCPCS: 80061; 82728; 83540; 83550; 85025 ==

== ENCOUNTER → 2023-11-01 14:13 | Outpatient (BNVA) | payer OTHER, SELFPAY | PROVIDERS: PCP Family Medicine; Visit Provider Family Medicine | DX: E55.9 Vitamin D deficiency, unspecified (principal); E53.8 Deficiency of other specified B group vitamins; E61.1 Iron deficiency; E78.1 Pure hyperglyceridemia | CPT/HCPCS: 82306; 82607 ==

== ENCOUNTER → 2023-12-05 10:22 | Outpatient (BNVA) | payer OTHER, SELFPAY | PROVIDERS: PCP Family Medicine; Visit Provider Nurse Practitioner Family | DX: L40.8 Other psoriasis (principal); L24.9 Irritant contact dermatitis, unspecified cause; L29.9 Pruritus, unspecified; D23.9 Other benign neoplasm of skin, unspecified; D22.61 Melanocytic nevi of right upper limb, including shoulder | CPT/HCPCS: 99213 ==

== ENCOUNTER 2023-12-13 09:17 | Outpatient (CLI) | payer OTHER, SELFPAY ==
--- NOTE | 2023-12-13 09:21 | MM_ITS ---
WS: [id number] VIEWS: MLO and CC views both breasts. 3D digital tomosynthesis is also included in this exam. Comparison made with prior exam of 02/27/2013, 10/01/2015, 11/19/2020, 11/23/2021, 11/29/2022.. Findings: There are scattered areas of fibroglandular density. No suspicious mass, tumor calcification or architectural distortion. MM/MM scr BI tomosynthesis [id number] Impression: BI-RADS: 2 - Benign FOLLOW-UP: 1 Year Follow-up This mammogram was also analyzed by the Computer Aided Detection System R2 Imag e Senior Bi Architect.
== END 2023-12-13 09:18 | disposition home or self-care (01) ==
LOC: RAD 09:18
PROVIDERS: PCP Family Medicine; Visit Provider Nurse Practitioner Women's Health
DX: Z12.31 Encounter for screening mammogram for malignant neoplasm of breast (principal); R92.323 Mammographic fibroglandular density, bilateral breasts
CPT/HCPCS: 77063; 77067

== ENCOUNTER 2023-12-21 09:21 | Outpatient (CLI) | payer OTHER, SELFPAY ==
--- NOTE | 2023-12-21 09:25 | XR_ITS ---
WS: [id number] XR chest 2V* [id number] REASON FOR EXAM: wheezing FINDINGS: Significant pectus deformity. Moderate cardiomegaly. Mild cephalization of pulmonary blood flow. Peribronchial cuffing and accentuation of reticular interstitial lung opacities in the central and lo wer lung hoang. No definite airspace consolidation. No significant abnormality of the bony thorax. XR/XR chest 2V* [id number] IMPRESSION: Abnormal chest which could represent early congestive heart failure or a viral URI with small airway and interstitial inflammation.
== END 2023-12-21 09:22 | disposition home or self-care (01) ==
LOC: RAD 09:22
PROVIDERS: PCP Family Medicine; Visit Provider Family Medicine
DX: R06.2 Wheezing (principal)
CPT/HCPCS: 71046

== ENCOUNTER 2023-12-22 17:29 | Emergency (ER) | payer OTHER, SELFPAY ==
[2023-12-22 17:36] VITALS: BP 151/86; PULSE 91; RESP 17; TEMP 36.8; O2SAT 98; BMI 30.6
--- NOTE | 2023-12-22 21:35 | ECG_ITS ---
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 Measurements Intervals Rogers Rate: 72 P: 10 KS: 144 QRS: -5 QRSD: 86 T: 14 QT: 391 QTc: 429 Interpretive Statements SINUS RHYTHM MINIMAL VOLTAGE CRITERIA FOR LVH, CONSIDER NORMAL VARIANT [MEETS CRITERIA IN ONE OF: R(aVL), S(V1), R(V5), R(V5/V6)+S(V1)] Compared to ECG 06/11/2021 22:41:18 No significant changes Electronically Signed On 12-23-2023 07:40:10 CDT by Aly Christianson M.D. [id number]
--- NOTE | 2023-12-22 21:43 | ED_ITS ---
HPI - URI/Sore Throat 2 General: Chief Complaint: Upper Respiratory Infection Stated Complaint: CHF Time Seen by Provider: 12/22/23 21:24 Source: patient Mode of arrival: ambulatory Limitations: no limitations History of Present Illness: Patient is a 43-year-old female presenting to the emergency department complaining of chest congestion for the past couple weeks. States that she saw her primary care, who scheduled an outpatient echocardiogram to be done for her in a couple weeks, patient states for the congestion she cannot wait this long. She states she was told that by x-ray she was told she has early CHF as well as pulmonary blood flow issues. She has no other symptoms to report aside from some chest pain that does not radiate. Reports history of pectus excavated him and states that she is worried that this is complicating any CHF. She is denying any bilateral lower extremity edema. Further, she is denying any other symptoms or past medical history. Vitals normal on arrival. MD elicited complaint: other (Chest congestion) Onset (ago): week(s) Consistency: constant Severity: mild Associated symptoms: Reports chest pain; Deny abdominal pain, chills, diarrhea, ear or mastoid pain, fever(s), headache(s), nausea or vomiting Related Data Home Medications Medication Instructions Recorded Confirmed multivitamin 1 cap PO DAILY 07/24/19 12/21/23 levocetirizine 5 mg tablet 5 mg PO DAILY PRN Allergy Symptoms 07/27/21 12/21/23 esomeprazole magnesium 20 mg 40 mg PO BID 01/20/22 12/21/23 tablet,delayed release (Nexium 24HR) famotidine 20 mg tablet (Pepcid AC) 20 mg PO BID 06/07/23 12/21/23 prednisolone acetate 1 % eye 1 drp ophthalmic (eye) .twice 06/07/23 12/21/23 drops,suspension weekly Previous Rx's Medication Instructions Recorded clobetasol 0.05 % scalp solution 1 applic topical DAILY #25 mL 01/21/20 clobetasol 0.05 % shampoo 1 applic topical .2 times weekly 12/07/21 #118 mL fenofibrate nanocrystallized 145 145 mg PO DAILY #90 tabs 11/01/23 mg tablet fluoxetine 10 mg capsule (Prozac) 10 mg PO DAILY #90 caps 11/08/23 clobetasol 0.05 % topical ointment 1 applic topical BID PRN vulvar 12/15/23 itching #45 grams albuterol sulfate 90 mcg/actuation 2 puff inhalation Q6H PRN 12/21/23 aerosol inhaler shortness of breath or wheezing #8.5 grams azithromycin 250 mg tablet See Rx Instructions PO .COMPLEX #6 12/22/23 tabs Allergies Allergy/AdvReac Type Severity Reaction Status Date / Time nitrofurantoin Allergy Hives, Verified 12/15/23 11:28 [From Macrodantin] Nausea Penicillins Allergy Hives, Verified 12/15/23 11:28 nausea Sulfa (Sulfonamide Allergy Hives Verified 12/15/23 11:28 Antibiotics) metronidazole [From Flagyl] AdvReac Yeast Verified 12/15/23 11:28 infection, nausea, diarrhea mirtazapine AdvReac Dizziness, Verified 12/15/23 11:28 just didn't feel well sertraline [From Zoloft] AdvReac tachycardia Verified 12/15/23 11:28 Review of Systems 2 General: Reports: 10 or more systems reviewed and unremarkable except in HPI and below Const: Denies: fever(s), chills or fatigue Eyes: Denies: change in vision ENMT: Denies: throat pain, ear or mastoid pain or nasal discharge Card: Reports: chest pain; Denies: palpitations, swelling of feet/ankles or lightheadedness Resp: Reports: wheezing and chest congestion; Denies: dyspnea or productive cough GI: Denies: abdominal pain, nausea, vomiting, diarrhea or constipation : Denies: flank pain, difficulty voiding, dysuria or urinary frequency Musc: Denies: neck pain, back pain or joint pain Skin/Breast: Denies: rash Neuro: Denies: headache(s), numbness in extremities or weakness in extremities PFSH ED 2 PFSH: Medical History Psychiatric care Hiatal hernia Pulmonary embolism Reports having COVID in May 2021 and had her PE and was on Eliquis which was stopped after 6 months Chronic post-traumatic stress disorder No pertinent past medical history Denies diabetes, asthma, hypertension, seizures, DVT PCP: Dr. Nuñez Depression with anxiety Currently on medication managed by PMD. Hearing impaired Surgical History History of hysteroscopy (~12/21/22) Hysteroscopy and D&C via MyoSure performed by Dr. Zimmer at [facility] for endometrial polyp Hx of endoscopy (~01/2022) GI upset H/O shoulder surgery Had right shoulder surgery in September 2021 for her rotator cuff Hx of lumpectomy Lumpectomy performed by Dr. Weiss from the right axilla S/P bilateral breast reduction Performed in [place] and [facility] in 2013 S/P cholecystectomy [place]/26[place] [place] [facility] [place]/P adenoidectomy Performed as a child S/P hemorrhoidectomy First on 08/29/2013 and a second surgery performed for recurrence on 07/13/2017---both procedures [place] [facility] [place] S/P abdominoplasty in 2010 H/O umbilical hernia repair 09/28/2017----Surgery performed by Dr. Weiss . Patient does not know if mesh was used. S/P dilation and curettage States that she has had 2 D&C about 2 weeks for heavy bleeding after both her deliveries S/P LEEP Performed in 2012 for an abnormal Pap smear by Dr. Slaughter. She states all Pap smears have been negative since then. S/P appendectomy Laparoscopic appendectomy performed on 08/09/[address] Weiss. Status post corneal transplant 05/2017 Status post surgery Anterior colporrhaphy with cystoscopy: Performed by Dr. Slaughter at the surgery center on 03/27/2012 for cystocele with stress urinary incontinence. Family History Mother Breast cancer Diagnosed in her late 40s Hypertension Hyperlipidemia Psychiatric illness Committed Suicide after battling breast cancer Grandmother Lung cancer maternal Breast cancer maternal, diagnosed in her late 40s Hypertension maternal Heart disease Stroke Grandfather Primary cancer of bone marrow maternal Stroke Denies family history of Ovarian cancer Diabetes Uterine cancer Thyroid disease Social History Smoking and tobacco/nicotine status: never used tobacco/nicotine Physical Exam 2 Const: COMMON NORMALS: no acute distress and no limitations GENERAL APPEARANCE: cooperative, comfortable and well developed O RIENTATION/CONSCIOUSNESS: Yes awake HENMT: COMMON NORMALS: normocephalic, atraumatic and hearing grossly normal bilaterally HEAD & SCALP: normocephalic and atraumatic Eye: COMMON NORMALS: Equal, round and reactive pupils present, EOMs intact bilaterally and conjunctivae normal CONJUNCTIVA: Yes conjunctivae normal P UPIL: Yes Equal, round and reactive pupils present Neck/C-Spine: COMMON NORMALS: full ROM, supple and no JVD Resp: COMMON NORMALS: normal respiratory effort, No retractions, No use of accessory muscles and clear to auscultation bilaterally AUSCULTATION: clear to auscultation bilaterally Cardio: COMMON NORMALS: no JVD, regular rate, regular rhythm, No clicks present (Cardio), No murmurs present (Cardio) and No rub (Cardio) RATE: r egular rate RHYTHM: regular rhythm GI: COMMON NORMALS: Normal to inspection, nondistended, normoactive bowel sounds present, Soft to palpation and non-tender AUSCULTATION: Yes normoactive bowel sounds PALPATION: Yes Soft to palpation RECTAL EXAM: d eferred Extremity: COMMON NORMALS: normal to inspection, full ROM and capillary refill normal NARRATIVE EXTREMITY EXAM: No peripheral edema Psych: COMMON NORMALS: mental status grossly normal and Normal thought process present THOUGHT PROCESS: Normal thought process present Skin: COMMON NORMALS: no rashes or lesions noted GENERAL SKIN EXAM: no rashes or lesions noted Course 2 Vital Signs: Vital signs: Vital Signs Temperature 98.3 F 12/22/23 17:36 Pulse Rate 72 12/22/23 23:07 Respiratory Rate 16 12/22/23 21:50 Blood Pressure 122/81 12/22/23 23:07 Pulse Oximetry 97 12/22/23 23:07 Oxygen Delivery Me thod Room Air 12/22/23 23:07 MDM - URI/Sore Throat Medical Decision Making Patient presented stating she wanted an echocardiogram here in the emergency department, explained to her that this is an outpatient and she already has scheduled for this. She states she had an x-ray done yesterday that commented on early CHF, however her lab work today in the emergency department was all unremarkable including negative troponin and a negative BNP. EKG was normal and swab for COVID/flu/RSV also negative. She states she was prescribed inhaler and antibiotics, has not taken either of these yet and I do believe that these may help her congestion. Her vitals have remained stable throughout the ED course, specifically a normal O2 saturation. She did not appear fluid overloaded on physical exam, and patient will be referred back to her primary care provider for any further evaluation. Return precautions were also given. Patient is okay with discharge home at this time. Lab Data 12/22/23 21:42 12/22/23 21:42 Laboratory Results WBC 7.29 10^3/uL (3.29-11.43) 12/22/23 21:42 RBC 4.56 10^6/uL (3.85-5.65) 12/22/23 21: Hgb 13.60 g/dL (11.27-16.99) 12/22/23: Hct 40.9 % (36-47) 12/22/23 21: MCV 89.7 fl (85-98) 12/22/23: MCH 29.8 pg (27-33) 12/22/23: MCHC 33.3 g/dL (30-55) 12/22/23 21:42 RDW 12.4 % (12.1-15.1) 12/22/23: Plt Count 403 10^3/cmm (157-399) H 12/22/23 21:42 MPV 9.5 fL (7.4-10.4) 12/22/23 21:42 Neut % (Auto) 57.2 % 12/22/23 21:42 Lymph % (Auto) 34.2 % 12/22/23 21:42 Chicot % (Auto) 6.3 % 12/22/23 21:42 Eos % (Auto) 1.5 % 12/22/23:42 Baso % (Auto) 0.5 % 12/22/23 21:42 Neut # (Auto) 4.17 10^3/uL (1.8-7.7) 12/22/23: Lymph # (Auto) 2.5 10^3/uL (0.8-4.8) 12/22/23 21:42 Chicot # (Auto) 0.5 10^3/uL (0.2-0.9) 12/22/23 21:42 Eos # (Auto) 0.1 10^3/uL (0.0-0.8) 12/22/23 21:42 Baso # (Auto) 0.0 10^3/uL (0.0-0.1) 12/22/23 21:42 Nucleated RBC % (auto) 0 % 12/22/23 21:42 Nucleated RBCs # 0.0 /100WBC 12/22/23 21:42 Sodium 138 mmol/L (136-145) 12/22/23 21:42 Potassium 4.2 mmol/L (3.5-5.1) 12/22/23 21:42 Chloride 99 mmol/L (98-107) 12/22/23 21:42 Carbon Dioxide 26 mmol/L (22-29) 12/22/23 21:42 Anion Gap 17.2 (5-19) 12/22/23 21:42 BUN 13 mg/dL (6-20) 12/22/23 21:42 Creatinine 0.6 mg/dL (0.5-0.9) 12/22/23 21:42 GFR Calculation 110.2 mL/min (90-130) 12/22/23 21:42 Glucose 89 mg/dL (65-115) 12/22/23 21:42 Calculated Osmolality 286 mOsm/kg (285-295) 12/22/23 21:42 Calcium 9.4 mg/dL (8.5-10.5) 12/22/23 21:42 Total Bilirubin 0.3 mg/dL (0.15-1.2) 12/22/23 21:42 AST 18 U/L (0-32) 12/22/23 21:42 ALT 21 U/L (0-33) 12/22/23 21:42 Alkaline Phosphatase 45 U/L (35-105) 12/22/23 21:42 Troponin T Baseline < 6 ng/L (0-10) 12/22/23 21:42 NT-Pro-B Natriuret Pep < 36 pg/mL (0-125) 12/22/23 21:42 Total Protein 7.7 g/dL (6.6-8.7) 12/22/23 21:42 Albumin 5.0 g/dL (3.5-5.2) 12/22/23 21:42 Globulin 2.7 g/dL (1.3-4.6) 12/22/23 21:42 Coronavirus (PCR) Negative (Negative) 12/22/23 21:53 Influenza A (PCR) Negative (Negative) 12/22/23 21:53 Influenza Type B (PCR) Negative (Negative) 12/22/23 21:53 RSV (PCR) Negative (Negative) 12/22/23 21:53 No radiology studies performed this visit Discharge Plan Discharge Patient Disposition: Home Clinical Impression: Lower respiratory infection Condition: Stable Prescriptions: No Action multivitamin Capsule 1 cap PO DAILY esomeprazole magnesium [Nexium 24HR] 20 mg tablet,delayed release (DR/EC) 40 mg PO BID famotidine [Pepcid AC] 20 mg tablet 20 mg PO BID clobetasol 0.05 % ointment 1 applic topical BID PRN (Reason: vulvar itching ) Qty: 45 0RF Rx Instructions: apply a pea sized amount to both labial folds albuterol sulfate 90 mcg/actuation HFA aerosol inhaler 2 puff inhalation Q6H PRN (Reason: shortness of breath or wheezing) Qty: 8.5 6RF azithromycin 250 mg tablet See Rx Instructions PO .COMPLEX Qty: 6 0RF Rx Instructions: For 250 mg dose pack: take 500 mg today (day 1), then 250 mg for 4 days (days 2-5) PO levocetirizine 5 mg tablet 5 mg PO DAILY PRN (Reason: Allergy Symptoms) prednisolone acetate 1 % drops,suspension 1 drp ophthalmic (eye) .twice weekly fluoxetine [Prozac] 10 mg capsule 10 mg PO DAILY Qty: 90 0RF fenofibrate nanocrystallized 145 mg tablet 145 mg PO DAILY Qty: 90 3RF Hold Instructions: Patient No Longer Taking clobetasol 0.05 % solution 1 applic topical DAILY Qty: 25 3RF Rx Instructions: Apply a few drops to affected area on the scalp prn clobetasol 0.05 % shampoo 1 applic topical .2 times weekly Qty: 118 3RF Rx Instructions: Lather onto scalp, let sit 5 minutes, then rinse Discharge Orders: Discharge ED (Routine); Ordered 12/22/23 Ordered By: Danial Finn Referrals: Iglesia Nuñez MD [Primary Care Provider] - Patient Instructions: Pain Management Activity Restrictions/Additional Instructions: Follow-up with primary care provider as discussed and keep plan for echocardiogram as an outpatient in a couple of weeks. Continue your albuterol inhaler at home, and begin azithromycin. Return with any new or worsening. Coding Level of Care Code ED Pesticide Control Inspector for Martin Mcclendon
[2023-12-22 21:47] LABS: Basophils % 0.5 %; Eosinophils # 0.1 10^3/uL (0.0-0.8); Eosinophils % 1.5 %; Hematocrit 40.9 % (36-47); Lymphocytes # 2.5 10^3/uL (0.8-4.8); Lymphocytes % 34.2 %; Mean Corpuscular HGB Conc 33.3 g/dL (30-55); Mean Corpuscular Hemoglobin 29.8 pg (27-33); Mean Corpuscular Volume 89.7 fl (85-98); Mean Platelet Volume 9.5 fL (7.4-10.4); Monocytes # 0.5 10^3/uL (0.2-0.9); Monocytes % 6.3 %; Neutrophils # 4.17 10^3/uL (1.8-7.7); Neutrophils % 57.2 %; Nucleated Red Blood Cells % 0 %; Platelet Count 403 10^3/cmm (157-399); Red Blood Count 4.56 10^6/uL (3.85-5.65); Red Cell Distribution Width 12.4 % (12.1-15.1); White Blood Count 7.29 10^3/uL (3.29-11.43)
[2023-12-22 21:50] VITALS: BP 147/89; PULSE 71; RESP 16; O2SAT 94
[2023-12-22 22:04] LABS: Troponin(5th) Baseline < 6 ng/L (0-10)
[2023-12-22 22:16] VITALS: BP 147/89; PULSE 83; O2SAT 94
[2023-12-22 22:40] LABS: Alanine Aminotransferase 21 U/L (0-33); Alkaline Phosphatase 45 U/L (35-105); Aspartate Amino Transferase 18 U/L (0-32); Blood Urea Nitrogen 13 mg/dL (6-20); Calcium 9.4 mg/dL (8.5-10.5); Carbon Dioxide 26 mmol/L (22-29); Creatinine Clr Calc Pharmacy 122.3845; Globulin 2.7 g/dL (1.3-4.6); Glomerular Filtration Rate 110.2 mL/min (90-130); Glucose 89 mg/dL (65-115); NT Pro B Type Natriuretic Pept < 36 pg/mL (0-125); Total Bilirubin 0.3 mg/dL (0.15-1.2); Total Protein 7.7 g/dL (6.6-8.7)
[2023-12-22 22:54] LABS: Covid PCR NEGATIVE (Negative); Influenza A NEGATIVE (Negative); Influenza B NEGATIVE (Negative); Respiratory Syncytial Virus Ce NEGATIVE (Negative)
[2023-12-22 23:07] VITALS: BP 122/81; PULSE 72; O2SAT 97
[2023-12-22 23:17] LABS: Anion Gap 17.2 (5-19); Chloride 99 mmol/L (98-107); Osmolality Calculated 286 mOsm/kg (285-295); Potassium 4.2 mmol/L (3.5-5.1); Sodium 138 mmol/L (136-145)
[2023-12-22 23:59] VITALS: BP 153/100; PULSE 78; RESP 20; O2SAT 98
== END 2023-12-23 | disposition home or self-care (01) ==
PROVIDERS: Emergency Provider Physician Assistant; PCP Family Medicine
DX: J22 Unspecified acute lower respiratory infection (principal); Z11.52 Encounter for screening for COVID-19
CPT/HCPCS: 0241U; 36415; 80053; 83880; 84484; 85025; 93005; 99285

== ENCOUNTER 2024-01-03 09:42 | Outpatient (CLI) | payer OTHER, SELFPAY ==
--- NOTE | 2024-01-03 10:00 | USCV_ITS ---
Nery Marie Age: 43 Gender: F : 1980 Exam Date: 01/03/2024 10:14 Ordering Phys: Iglesia Nuñez MD Technologist: MARIALUISA Exam Location: [facility] [place] Indication: CHEST PAIN BP: 124 / 82 HR: 72 Rhythm: Sinus Technical Quality: Adequate MEASUREMENTS (Male / Female) Normal Values 2D ECHO LV Diastolic Diameter PLAX 3.8 cm 4.2 - 5.9 / 3.9 - 5.3 cm IVS Diastolic Thickness 0.8 cm 0.6 - 1.0 / 0.6 - 0.9 cm IVS Systolic Thickness 2.1 cm LVPW Diastolic Thickness 1.6 cm 0.6 - 1.0 / 0.6 - 0.9 cm LVPW Systolic Thickness 1.8 cm LVOT Diameter 2.0 cm LV Ejection Fraction 2D Teich 66.6 % LV Ejection Fraction MOD 4C 52.5 % LV Ejection Fraction MOD 2C 52.4 % LV Ejection Fraction 2C AL 54.3 % LA Diameter 2.5 cm RA Systolic Volume 4C AL 15.3 ml RA Systolic Volume 4C MOD 14.3 ml LA Sys Volume AL 17.6 cm cubed LA Sys Volume Index AL 9.3 cm cubed/m squared Aorta at Sinotubular Diameter 2.4 cm M-MODE LA Ao Ratio MM 1.0 AV Cusp Separation MM 1.9 cm DOPPLER AV Peak Velocity 100.0 cm/s LVOT Peak Velocity 77.0 cm/s AV Area Cont Eq vti 2.5 cm squared AV Area Cont Eq pk 2.5 cm squared MV Peak Velocity 110.0 cm/s MV Area PHT 4.4 cm squared Mitral E to A Ratio 1.7 TR Peak Velocity 107.0 cm/s TR Peak Gradient 4.6 mmHg TR Mean Velocity 90.0 cm/s TR Mean Gradient 3.4 mmHg TR Velocity Time Integral 33.7 cm TV Peak E Velocity 63.0 cm/s Right Atrial Pressure 3.0 mmHg Pulmonary Artery Systolic Pressu 7.6 mmHg PV Peak Velocity 82.0 cm/s RV Ejection Time 0.3 s FINDINGS Left Ventricle Relative hypokinesia of the septum and the anteroseptal segments. LV ejection fraction 50 to 55%. Right Ventricle The right ventricle is normal in size and function. Right Atrium The right atrium is normal in size. Left Atrium The left atrium is normal in size. Mitral Valve Trace to mild mitral valve regurgitation. Aortic Valve No gross abnormalities noted Tricuspid Valve No gross abnormalities noted Pulmonic Valve Pulmonic valve not well visualized. Pericardium Normal pericardium without effusion. Aorta Normal ascending aorta dimension. IVC Inferior vena cava not visualized. CONCLUSIONS Normal LV size and ejection fraction of 50 to 55%. Relative hypokinesia of the septum and the anteroseptal segments. May suggest ischemia in the LAD distribution. Clinical correlation is recommended Trace to mild mitral valve regurgitation. There is no pericardial effusion. There are no intracardiac masses. No similar previous studies are available for comparison Dr Jc Ivy MD [facility] (Electronically Signed) Final Date: 04 January 2024 07:51 S
== END 2024-01-03 09:43 | disposition home or self-care (01) ==
PROVIDERS: PCP Family Medicine; Visit Provider Family Medicine
DX: Q67.6 Pectus excavatum (principal); R06.00 Dyspnea, unspecified; I51.7 Cardiomegaly
CPT/HCPCS: 93306

== ENCOUNTER → 2024-01-09 10:10 | Outpatient (BNVA) | payer OTHER, SELFPAY | PROVIDERS: PCP Family Medicine; Visit Provider Internal Medicine Cardiovascular Disease | DX: R07.89 Other chest pain (principal); R93.1 Abnormal findings on diagnostic imaging of heart and coronary circulation; E78.1 Pure hyperglyceridemia; I10 Essential (primary) hypertension; Q67.6 Pectus excavatum; Z86.711 Personal history of pulmonary embolism; Z87.891 Personal history of nicotine dependence | CPT/HCPCS: 99204 ==

== ENCOUNTER → 2024-01-18 10:42 | Outpatient (BNVA) | payer OTHER, SELFPAY | PROVIDERS: PCP Family Medicine; Visit Provider Family Medicine | DX: E61.1 Iron deficiency (principal) | CPT/HCPCS: 82728; 83550; 84466 ==

== ENCOUNTER 2024-01-24 08:55 | Outpatient (CLI) | payer OTHER, SELFPAY ==
--- NOTE | 2024-01-24 | ECG_ITS ---
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 Interpretive Statements Lung unchanged pre/post procedure; Intraprocedure shortess of breath; Symptoms resoled by discharge PROCEDURE: The baseline electrocardiogram showed [normal sinus rhythm with some nonspecific T wave changes. At the baseline, the patient's blood pressure was 141/71 mm Hg with a heart rate of 89. The patient exercised for 7 minutes and 45 seconds on a standard Mark protocol. Patient attained a maximum heart rate of 162 beats per minute(90% of the maximum predicted heart rate) with a blood pressure at the peak exercise of 188/47 mm Hg. The EKG at the peak exercise revealed nonspecific T wave changes. Patient did not have any chest pain or any significant arrhythmis with the exercise Sestamibi was injected 1 minute prior to the peak exercise During the recovery phase, there were no new changes. Blood pressure at the end of the recovery phase was 132/59 mm Hg with a heart rate of 96 per minute. CONCLUSION: 1. Nonspecific T wave changes with the treadmill exercise 2. No exercise-induced chest pain or cardiac arrhythmia 3. Fair exercise tolerance, attained a maximum of 10.2 METs 4. Sestamibi/Sestamibi perfusion results pending; see separate report. Electronically Signed On 01-28-2024 13:34:43 IT ARCHITECTURE CONSULTANT by Jc Ivy M.D. [email or web address]
--- NOTE | 2024-01-24 08:59 | NMCV_ITS ---
NM quintin perf SPECT r/s* [id number] Nery Marie Age: 43 Gender: F : 1980 Exam Date: 01/24/2024 09:38 Ordering Phys: Jc Ivy MD ([email or web address]) Technologist: REBECCA Miner Exam Location: [facility] Indications: cp STRESS TEST [facility] IMAGE PROTOCOL Rest/Stress 1 Exercise Day Radiopharmaceutical Dose (mCi) Administration Site Administered by Rest: Tc-99m 10.3 IV REBECCA Miner Stress:Tc-99m 32.7 IV REBECCA Miner Rest: 01/24/2024 60 Discovery 630 Stress: 01/24/2024 15 Discovery 630 Radiopharmaceutical was injected at 87 % maximum heart rate. Images obtained in supine and prone position. SPECT RESULTS Technical Quality: Good Raw Data Analysis: Normal Image Corrections: No attenuation or motion correction applied Summed Stress Score: 1 Summed Rest Score: 0 Summed Difference Score: 1 PERFUSION FINDINGS A small area of slightly decreased tracer uptake in the mid inferolateral segment with some reversibility with the supine imaging. However with the prone imaging, no significant Perfusion normalities were noted FUNCTIONAL RESULTS (calculated via Gated SPECT) Stress Image LV EF (%): 80 Stress EDV (mL):56 TID: 0.61 Stress ESV (mL):11 FUNCTIONAL FINDINGS: Segmental wall motion analysis revealing no gross wall motion abnormalities segmental wall motion analysis revealing no gross wall motion abnormalities IMPRESSIONS 1. Myocardial perfusion imaging revealing a small area of slight reversibility involving the mid inferolateral segment, in the supine imaging. This may suggest ischemia in the distribution of the left circumflex artery. However because of the inconsistency with the prone imaging, most likely it is artifactual. 2. Normal LV ejection fraction of 80%. 3. LV wall motion analysis revealing no gross wall motion abnormalities. 4. Normal LV volume No similar previous studies are available for comparison Dr Jc Ivy MD [facility] (Electronically Signed) Final Date: 24 January 2024 13:36 S
[2024-01-24 09:09] VITALS: BMI 30.6
[2024-01-24 10:47] VITALS: BP 132/59; PULSE 96
== END 2024-01-24 08:56 | disposition home or self-care (01) ==
PROVIDERS: PCP Family Medicine; Visit Provider Internal Medicine Cardiovascular Disease
DX: Z98.61 Coronary angioplasty status (principal); R06.02 Shortness of breath; R94.39 Abnormal result of other cardiovascular function study
CPT/HCPCS: 36415; 78452; 93017; 96374; A9500

== ENCOUNTER → 2024-02-06 13:08 | Outpatient (BNVA) | payer OTHER, SELFPAY | PROVIDERS: PCP Family Medicine; Visit Provider Internal Medicine Cardiovascular Disease | DX: R94.39 Abnormal result of other cardiovascular function study (principal); R07.89 Other chest pain; E78.1 Pure hyperglyceridemia; I10 Essential (primary) hypertension; Z86.711 Personal history of pulmonary embolism | CPT/HCPCS: 99214 ==

== ENCOUNTER 2024-02-17 14:40 | Outpatient (CLI) | payer OTHER, SELFPAY ==
[2024-02-17 15:20] LABS: Basophils % 0.5 %; Eosinophils # 0.2 10^3/uL (0.0-0.8); Eosinophils % 2.5 %; Hematocrit 40.5 % (36-47); Lymphocytes # 2.1 10^3/uL (0.8-4.8); Lymphocytes % 23.9 %; Mean Corpuscular HGB Conc 34.1 g/dL (30-55); Mean Corpuscular Hemoglobin 30.3 pg (27-33); Mean Platelet Volume 9.6 fL (7.4-10.4); Monocytes # 0.7 10^3/uL (0.2-0.9); Monocytes % 8.2 %; Neutrophils # 5.71 10^3/uL (1.8-7.7); Neutrophils % 64.7 %; Nucleated Red Blood Cells % 0 %; Platelet Count 386 10^3/cmm (157-399); Red Blood Count 4.55 10^6/uL (3.85-5.65); Red Cell Distribution Width 12.1 % (12.1-15.1); White Blood Count 8.82 10^3/uL (3.29-11.43)
[2024-02-17 15:33] LABS: INR 0.88 (0.8-1.2)
[2024-02-17 15:38] LABS: Anion Gap 16.9 (5-19); Blood Urea Nitrogen 14 mg/dL (6-20); Calcium 9.8 mg/dL (8.5-10.5); Carbon Dioxide 22 mmol/L (22-29); Chloride 100 mmol/L (98-107); Glucose 89 mg/dL (65-115); Osmolality Calculated 280 mOsm/kg (285-295); Potassium 3.9 mmol/L (3.5-5.1); Sodium 135 mmol/L (136-145)
== END 2024-02-17 14:41 | disposition home or self-care (01) ==
LOC: LAB 14:41
PROVIDERS: PCP Family Medicine; Visit Provider Internal Medicine Cardiovascular Disease
DX: R06.02 Shortness of breath (principal); I25.118 Atherosclerotic heart disease of native coronary artery with other forms of angina pectoris; Z79.01 Long term (current) use of anticoagulants; I48.91 Unspecified atrial fibrillation
CPT/HCPCS: 36415; 80048; 85025; 85610; 86850; 86900

== ENCOUNTER 2024-02-20 06:00 | Outpatient (CLI) | payer OTHER, SELFPAY ==
[2024-02-20] VITALS (40 sets, daily range): BP systolic 99–137; BP diastolic 54–88; PULSE 62–77; RESP 13–19; TEMP 36.9; O2SAT 94–100; BMI 30.9
--- NOTE | 2024-02-20 06:00 | XACV_ITS ---
Exam Room: 2 Ht: 160 cm Wt: 79 kg BSA: 1.91 m2 Gender: Female : 1980 Any Known Allergies: Other Exam Priority: Routine Procedure(s): Procedure Description: Diagnostic procedure Procedure Description: Left Heart Catheterization Procedure Description: Left ventriculography Procedure Description: Coronary Angiography Biju REES; Diagnostic Cath Status: Elective Diagnostic Findings * Left main is a short medium caliber vessel with no significant stenotic lesion. * Left anterior descending artery is a medium caliber vessel with no significant lesions. * Left circumflex artery is a nondominant medium caliber vessel with no significant lesions. * Right coronary artery is a medium to large caliber dominant vessel, which has a low and posterior takeoff. No severe lesions were noted. Conclusions 1. 43-year-old female with a multiple risk factors for coronary disease, presenting with increasing episodes of chest pains. She had a small area of possible ischemia in the distribution of the left circumflex artery. But in view of the ongoing symptoms, and risk factors, in order to further evaluate her coronary status, a cardiac catheterization was recommended. She underwent left heart catheterization with a left and right coronary angiogram and LV angiogram today. The findings are as follows.. 2. #1. No significant obstructive coronary disease. #2 LVEDP of 21 mmHg. #3 LV ejection fraction of 60%. Diagnostic RX Recommendation: medical therapy and/or counseling LV EDP: 21 mmHg Ventriculography Ejection Fraction: 60.0 % Left Ventriculography Findings: * The LV gram was performed in the PAYNE projection. The LV cavity appeared to be normal size. LV ejection fraction was 60%. LVEDP was 21 mmHg. Pressures Phase:Rest AO : 111 / 69 ( 84 ) @ 7:23:00 AM 119 / 71 ( 93 ) @ 7:39:00 AM 121 / 69 ( 94 ) @ 7:39:00 AM LV : 136 / 0 / 21 @ 7:38:00 AM 130 / 3 / 23 @ 7:39:00 AM 130 / 5 / 25 @ 7:39:00 AM Valves Phase:DefaultPhase AV : 12.0 @ 7:46:31 AM AV Mean Gradient: 15.0 @ 7:46:31 AM Clinical Evaluation EBL: 5mL-10mL Procedural Details Procedure Consent Obtained. Admit Source: Out Patient. Pre-Procedure Time Out. Identified patient by full name and date of as verbalized by the patient/guarantor. Does the consent match the physician's order: Yes. Accurate & Complete Informed Consent: Yes. Inpatient/Outpatient History & Physical on Chart: Yes. If H&P is completed, is and addenduem needed: No; If yes, is the addendum complete: N/A. Visualize and Verify Site with Patient/Guarantor: N/A. Relevant Radiology Images available: N/A. The risks, benefits, and alternatives of sedation and/or procedure were discussed by physician. The patient agrees to continue. Procedure started. [facility] Clinical Fraility Score: 3: Managing Well. Strategic Account Executive Indications: Worsening Angina. Chest Pain Symptom Assessment: Atypical Angina. Correct patient, site and procedure confirmed by cath team. Current diagnosis: Chest Pain, abnormal stress test. PERRLA. Strong, equal hand meteorologist liaison bilaterally. Lungs clear x 5 lobes. IV Site on Arrival: 20 gauge in the right anticubital. IV Fluids: 0.9% NaCl at KVO. 0 mL infused prior to laboratory veterinarian. Pre Procedural Pulses: bilateral radial was 3+. Pre Procedural Pulses: bilateral posterior tibial was 2+. Pre Procedural Pulses: bilateral dorsalis pedis was Doppled. Oxygen started at 2liters/min via nasal canula. right radial was prepped with chloroprep then draped in the usual sterile fashion. Physician notified. Baseline sample Acquired. HR: 78 BPM. Physician arrived. Physician scrubbed in. Immediate Pre-Procedure Time Out. Correct Patient: Yes; Correct Procedure: Yes; Correct Site: Yes; Correct Patient Position: Yes; Correct Supplies: Yes; Dried Flammable Prep: Yes; Blood Products Available: No;. Lidocaine 1% infiltrated to the right radial. Arterial access obtained. A 5 uruguayan Shai catheter in over wire. Multiple views taken of left coronary artery. Catheter redirected to the RCA. Catheter removed over the exchange wire. A 5 uruguayan TIG catheter in over wire. Catheter removed over the exchange wire. A 5 uruguayan JR4 catheter in over wire. Multiple views taken of right coronary artery. Catheter removed over the exchange wire. A 5 uruguayan Angled Pig catheter in over wire. EDP Sample taken: LV 136/0,21; HR: 82 BPM; SpO2: 100%. LV gram performed in PAYNE @ 10 mL/second for a total of 30 mL. EDP Sample taken: LV 130/3,23; HR: 81 BPM; SpO2: 100%. Pullback taken: LV 130/5,25; AO 119/71(93); Mean: 15mmHg, Peak to Peak: 12mmHg, SEP: 10sec/min; HR: 82 BPM; SpO2: 100%. Catheter removed over the exchange wire. Physician scrubbed out. Post Procedure: Pulses reassessed and unchanged. PERRLA. Strong, equal hand meteorologist liaison bilaterally. No VTE prophylaxis required. Medication's Wasted: Lidocaine 1% = 18 mL. Medication's Wasted: Nitro = 49.8 mg. Medication's Wasted: Heparin = 3000 units. Total IV fluids: 250 mL. Post-op diagnosis: Normal coronaries, High LVEDP. Complications: None. Estimated blood loss: 5mL-10mL. Responsiveness - Normal response to verbal stimuli; alert and oriented, PERRLA. Airway - Unaffected, no intervention required; spontaneous ventilation. Circulation: W/N/L, pulses unchanged. Nausea/Vomiting: No. A TR Band was successful obtaining hemostatsis at the Right Radial artery insertion site. Procedure completed. Patient transferred by wheelchair to CPRU. Vital chart was stopped. Access Site Site: Right Radial artery Sheath Size: 6 Fr Hemostasis Method: TR Band Hemostasis Success: Successful Procedure Medications Start: 7:11 AM Stop: 7:11 AM Medication: Versed Amount: 1 mg Route: I.V. Start: 7:11 AM Stop: 7:11 AM Medication: Fentanyl Amount: 50 mcg Start: 7:20 AM Stop: 7:20 AM Medication: Verapamil Amount: 5 mg Route: I.A. Start: 7:20 AM Stop: 7:20 AM Medication: Nitrogylcerin Amount: 200 mcg Route: I.A. Start: 7:20 AM Stop: 7:20 AM Medication: 0.9% Saline Amount: 250 ml Route: I.V. bolus Start: 7:20 AM Stop: 7:20 AM Medication: Fentanyl Amount: 50 mcg Start: 7:20 AM Stop: 7:20 AM Medication: Versed Amount: 1 mg Route: I.V. Start: 7:29 AM Stop: 7:29 AM Medication: Heparin Amount: 5000 units Route: I.V. I, the attending physician, have reviewed and verified all procedure medications. Yes, all medications given per verbal order History/Risk Factors Hypertension: Yes Dyslipidemia: Yes Peripheral Arterial Disease (PAD): No Myocardial Infarction (NC): No Obesity: No Renal Disease: No Tobacco Use: Former Prior Interventions PCI: No CABG: No Valve Surgery: No Report Signatures Finalized by Dr Jc Ivy MD [facility] on 02/20/2024 09:28 PM
[2024-02-20] MEDS: diphenhydrAMINE 50 mg Capsule PO (06:29)
--- NOTE | 2024-02-20 06:53 | P.HPUD_ITS ---
Surgery/Procedure H&P Update DATE OF PROCEDURE: February 20, 2024 DATE H&P PERFORMED: 02/06/24 H&P UPDATE INFORMATION: I have reviewed H&P completed within last 30 days, I have examined patient prior to procedure and No changes to prior documentation PREOP DIAGNOSIS: Possible ASHD PRIMARY INDICATION FOR PROCEDURE: Abnormal stress test/chest pain/family history of premature atherosclerotic heart diseas/hypertriglyceridemia/history of pulmonary embolism PLANNED PROCEDURE: Operation Date: 02/20/24 07:00 Proposed Procedures p Cardiac Catheterization - [facility] w/wo LV & Coros(Left) - Jc Ivy MD PATIENT REASSESSED PRIOR TO SEDATION, WITH NO CHANGE NOTED: Yes PHYSICAL EXAM: alert, oriented x 3, clear to auscultation bilaterally and regular rate & rhythm AIRWAY EVAL/ANESTHESIA PLAN: normal airway, see other exam findings, ASA II, Mo nitored Anesthesia, Local Anesthesia, Risks, benefits & alternatives of sedation and/or procedure discussed and Patient agrees to continue as planned
--- NOTE | 2024-02-20 10:19 | PC.NURSE ---
TR band off @ 1010, no bleeding or swelling noted at this time.
== END 2024-02-20 11:18 | disposition home or self-care (01) ==
PROVIDERS: Internal Medicine Cardiovascular Disease; PCP Family Medicine; Visit Provider Internal Medicine Cardiovascular Disease
DX: R94.39 Abnormal result of other cardiovascular function study (principal); R07.9 Chest pain, unspecified; Z82.49 Family history of ischemic heart disease and other diseases of the circulatory system; Z86.711 Personal history of pulmonary embolism; Z79.82 Long term (current) use of aspirin; E78.1 Pure hyperglyceridemia; I10 Essential (primary) hypertension
CPT/HCPCS: 36415; 93458; 96365; 96374; 99152; 99153; C1769; C1887; C1894; J1644; J2250; J3010; J3490; J7030; Q0163; Q9967

== ENCOUNTER → 2024-02-27 08:09 | Outpatient (BNVA) | payer OTHER, SELFPAY | PROVIDERS: PCP Family Medicine; Visit Provider Nurse Practitioner Family | DX: I10 Essential (primary) hypertension (principal); E78.5 Hyperlipidemia, unspecified | CPT/HCPCS: 99214 ==

== ENCOUNTER → 2024-07-20 10:04 | Outpatient (BNVA) | payer OTHER, SELFPAY | PROVIDERS: PCP Family Medicine; Visit Provider Nurse Practitioner Family | DX: I10 Essential (primary) hypertension (principal) | CPT/HCPCS: 99213 ==

== ENCOUNTER → 2024-10-02 08:56 | Outpatient (BNVA) | payer OTHER, SELFPAY | PROVIDERS: PCP Family Medicine; Visit Provider Family Medicine | DX: E78.5 Hyperlipidemia, unspecified (principal); D64.9 Anemia, unspecified; E61.1 Iron deficiency | CPT/HCPCS: 80061; 82728; 83550; 84466 ==

== ENCOUNTER → 2024-12-04 10:36 | Outpatient (BNVA) | payer OTHER, SELFPAY | PROVIDERS: PCP Family Medicine; Visit Provider Nurse Practitioner Family | DX: L24.9 Irritant contact dermatitis, unspecified cause (principal); L40.8 Other psoriasis; L91.0 Hypertrophic scar | CPT/HCPCS: 99214 ==

== ENCOUNTER 2024-12-13 13:12 | Outpatient (CLI) | payer OTHER, SELFPAY ==
--- NOTE | 2024-12-13 13:20 | MM_ITS ---
WS: [id number] BILATERAL 3D TOMOSYNTHESIS DIGITAL SCREENING MAMMOGRAPHY WITH CAD CLINICAL INFORMATION: SCREENING HISTORY: Screening mammogram. No current complaints. History of reduction. COMPARISON: 2023 TECHNIQUE: Bilateral CC and MLO views. FINDINGS: Scattered fibroglandular densities bilaterally. No suspicious focal mass, asymmetry, calcifications, or architectural distortion. No evidence of malignancy. A few incidental punctate calcifications. MM/MM scr tomosynthesis [id number] IMPRESSION: DENSITY: There are scattered areas of fibroglandular density. BI-RADS: 2 - Benign. FOLLOW UP: 1 Year Follow-up Recommend return to annual screening mammography.
== END 2024-12-13 13:13 | disposition home or self-care (01) ==
LOC: RAD 13:13
PROVIDERS: PCP Family Medicine; Visit Provider Family Medicine
DX: Z12.31 Encounter for screening mammogram for malignant neoplasm of breast (principal); R92.323 Mammographic fibroglandular density, bilateral breasts; R92.1 Mammographic calcification found on diagnostic imaging of breast
CPT/HCPCS: 77063; 77067

== ENCOUNTER → 2024-12-26 09:05 | Outpatient (BNVA) | payer OTHER, SELFPAY | PROVIDERS: PCP Family Medicine; Visit Provider Family Medicine | DX: Z13.6 Encounter for screening for cardiovascular disorders (principal); D64.9 Anemia, unspecified; R53.81 Other malaise; R53.83 Other fatigue; E53.8 Deficiency of other specified B group vitamins | CPT/HCPCS: 80053; 80061; 82306; 82607; 82728; 83550; 84443; 84466; 85025 ==

== ENCOUNTER → 2025-02-25 14:41 | Outpatient (BNVA) | payer OTHER, SELFPAY | PROVIDERS: PCP Family Medicine; Visit Provider Internal Medicine Cardiovascular Disease | DX: R07.9 Chest pain, unspecified (principal); E78.1 Pure hyperglyceridemia; I10 Essential (primary) hypertension; I51.89 Other ill-defined heart diseases; Z86.711 Personal history of pulmonary embolism | CPT/HCPCS: 99214 ==